=== PATIENT | female | born 1935 | race Caucasian/White ===

== ENCOUNTER → 2016-07-26 | Outpatient (CLI) | payer BC ==
[~2016-07-26] MED LIST: ACET-1047 PO; ASPCH81X PO; AZIT500T26 PO; CALC500C70 PO; CIPR1TAB10 PO; FLM4 PO; FRS/40 PO; INSU70IN2 SC; LANS30CA12 PO; LEVO75TA5 PO; LOSA1TAB PO; MELO15TA10 PO; MESA800T2 PO; METR-163 PO; PRED20TA PO; PROP40TA5 PO; RMCI IV; TRAM37.52 PO
--- NOTE | 2016-07-26 14:27 | DIAGNOSTIC IMAGING REPORT ---
CT SINUSES WITH BRAIN LAB CT DOSE: 634.72 mGycm CLINICAL HISTORY: Chronic sinusitis TECHNIQUE: Helical images were acquired in the transverse plane. Coronal reformatted images were acquired. COMPARISON STUDY: Conventional radiographic evaluation the sinuses dated 12/24/2015 FINDINGS: The mastoid air cells are symmetrically aerated. The maxillary sinuses are nearly completely opacified bilaterally. There is opacification of multiple bilateral ethmoid air cells. The frontal sinuses are opacified. There is no hydrocephalus. No orbital masses are visualized. There is ostial obstruction the right ostiomeatal unit. The left ostiomeatal unit is completely occluded. There is possible erosion of the medial wall the left maxillary sinus. There is also probable left ethmoid sinus septal erosion. There is nonspecific bony lysis involving the left medial sphenoid and anterior clivus. IMPRESSION: 1. Extensive inflammatory changes within the maxillary ethmoid and frontal sinuses 2. Occlusion of the ostiomeatal units 3. Suspected bony erosion involving the medial wall of the left maxilla sinus and left ethmoid septa 4. Nonspecific bony lysis involving the left medial sphenoid and anterior clivus Electronically signed by: Nate Park M.D. 07/26/2016 2:25 PM
== END | disposition home or self-care (01) ==
LOC: C.CTS 13:08
PROVIDERS: ATTEND Otolaryngology
DX: J32.9 Chronic sinusitis, unspecified (principal); Z01.812 Encounter for preprocedural laboratory examination

== ENCOUNTER → 2016-07-27 | Day surgery (SDC) | payer BC ==
[2016-07-25 15:48] VITALS: Ht 152.4 cm; Wt 81.8 kg
--- NOTE | 2016-07-26 13:17 | History and Physical: Surg Cnt ---
History & Physical Date Jul 26, 2016. Chief Complaint chronic sinusitis History of Present Illness The patient is a 81 year old female with complaints of sinusitis, polyps Past Medical/Surgical History Medical Problems: (1) DEHYD. UTI, ANEMIA (2) Hemorrhoids Surgical Problems: (1) History of colon resection Additional History Hepatic Disease: No Endocrine Disorder: Yes Kidney Disease: No Hypertension: Yes Heart Disease: No Bleeding Tendencies: No Infectious Diseases: No Allergies Coded Allergies: No Known Allergies (Verified , 07/25/16) Home Medications Scheduled Aspirin (Aspirin Chewable), 81 MG PO QAM Calcium/Vitamin D (Os-Karan 500 Plus D), 1 TAB PO QAM Furosemide (Lasix), 40 MG PO QAM Insulin Isophan/Regular (Novolin 70/30), 70 UNITS SC QAM Insulin Isophan/Regular (Novolin 70/30), 47 SC QPM Levothyroxine Sodium (Levothyroxine Sodium), 1 TAB PO QAM Losartan Potassium (Cozaar), 1 TAB PO QAM Meloxicam (Mobic), 15 MG PO QAM Propranolol Hcl (Propranolol Hcl), 1 TAB PO BID Physical Examination Skin: warm/dry, no rash Eyes: normal inspection, EOMI, sclerae normal ENT: normal ENT inspection, pharynx normal Head: normocephalic, atraumatic Neck: supple, no adenopathy, trachea midline Respiratory/Chest: lungs clear, normal breath sounds, no respiratory distress Cardiovascular: regular rate, rhythm, no edema, no murmur Abdomen / GI: normal bowel sounds, non tender Back: normal inspection Extremities: normal inspection, normal range of motion Neurologic/Psych: no motor/sensory deficits, alert, normal reflexes, oriented x 3 Diagnosis chronic sinusitis Plan of Treatment endoscopic sinus surgery
[~2016-07-27] VITALS: Ht 152.4 cm; Wt 81.8 kg
[~2016-07-27] MED LIST changes: +ATROPINE SULFATE 0.1 MG/ML 5ML SYR IV PRN; +BACITRACIN OINT 15 GM TUBE ONE; +CEFAZOLIN 2000 MG/60 ML D5W IV SCH; +DEXAMETHASONE SOD INJ 4 MG/ML VIAL ONE; +EpINEphrine INJ 1MG/ML AMP 1 MG/ML AMP ONE; +FENTANYL CITRATE INJ 50 MCG/1 ML 2 ML VIAL IV PRN; +FENTANYL CITRATE INJ 50 MCG/1 ML 2 ML VIAL ONE; +LABETALOL HCL IV 5 MG/ML 20ML IV PRN; +LACTATED RINGER'S 1000ML 1,000 ML IV SCH; +LIDO 2%/EPINEPHRINE 1:100000 20 ML VIAL INFIL ONE; +LIDOCAINE 4% MPF SOAK 5 ML = 1 DOSE TOP ONE; +LIDOCAINE HCL 2% 2 ML VIAL (20MG/ML) ONE; +METOCLOPRAMIDE HCL INJ 5 MG/ML 2 ML VIAL ONE; +ONDANSETRON INJ 2 MG/ML 2 ML VIAL IV PRN; +ONDANSETRON INJ 2 MG/ML 2 ML VIAL ONE; +OXYCODONE/ACETAMINOPHEN 5-325 TAB PO PRN; +PROPOFOL IV EMULSION 10 MG/ML 20 ML VIAL IV ONE; +SODIUM CHLORIDE 0.9% 1000ML 1,000 ML IV SCH
--- NOTE | 2016-07-27 08:08 | History & Physical Bridge Note ---
H&P Re-Evaluation Bridge Note: I have examined the patient, reviewed the History & Physical and in the interval since the performance of the History & Physical I have noted the following changes of clinical significance: No changes noted
--- NOTE | 2016-07-27 09:11 | Discharge Instructions-SurgCtr ---
Discharge Instructions Visit Reason for Visit: Chronic Sinusitis Discharge Discharge Diagnosis / Problem: same Discharge Goals Goal(s): Therapeutic intervention Activity Recommendations Activity Limitations: resume your previous activity Anesthesia . Post Anesthesia Instructions: If you have had General Anesthesia or IV Sedation: * Do not drive today. * Resume driving when surgeon permits. * Do not make important decisions or sign legal documents today. * Call surgeon for: 1. Temperature elevations greater than 101 degrees F. 2. Uncontrollable pain. 3. Excessive bleeding. 4. Persistent nausea and vomiting. 5. Medication intolerance (nausea, vomiting or rash). * For nausea and vomiting use only clear liquids such as: tea, soda, bouillon until nausea subsides, then gradually increase diet as tolerated. * If you have any concerns or questions, call your surgeon's office. If physician is unavailable and it is an emergency, call 911 or go to the nearest emergency room. . Instructions / Follow-Up Instructions / Follow-Up ACTIVITY RECOMMENDATIONS: * Being up and around is good, but no strenuous activity, heavy lifting or physical exertion for one week. * Keep your head elevated 30 degrees when lying down or sleeping. * Do not blow your nose for 48 hours, sniff back instead. * Avoid hot showers. OVER THE COUNTER MEDICATIONS: * You may use Tylenol * Avoid aspirin or aspirin containing products, e.g. as they may increase bleeding. SPECIAL CARE INSTRUCTIONS: * Expect to have bloody drainage from your nose and/or down your throat for one to three days. Change drip pad as needed. * Begin irrigating your nose with saline solution today, at least six to ten times per day and sniff back to help remove old clots or crust. * You may experience nasal and facial congestion, pain and pressure, this is normal. * Please call with any significant and/or progressive pain, redness, swelling around the eyes, visual changes, fever of 101.5 degrees F, active bleeding or any problems or concerns. * If active bleeding occurs, spray the nose three times at one minute intervals with Afrin spray and call or cell phone: . If unable to reach the doctor, go to the nearest Emergency Department. Special Diet: * Avoid extremely hot fluids. FOLLOW UP VISIT: Follow-up Visit with Dr. Floyd If not already scheduled, please call to schedule. Diet Recommendations Home Diet: resume previous diet Pending Studies Studies pending at discharge: no Medical Emergencies . Who to Call and When: Medical Emergencies: If at any time you feel your situation is an emergency, please call 911 immediately. . Non-Emergent Contact Non-Emergency issues call your: Primary Care Provider . . "Provider Documentation" section prepared by Marilin Floyd. [facility] Monitoring Program Search Results: no issues identified
[2016-07-27 09:14] LABS: BUN/CREATININE RATIO 18.5 (10-20); CALCIUM 9.4 mg/dl (8.5-10.1); CREATININE 1.2 mg/dl (0.60-1.20); POTASSIUM 4.3 mmol/L (3.5-5.1)
--- NOTE | 2016-07-27 11:53 | OPERATIVE REPORT ---
DATE OF OPERATION: 07/27/2016 PREOPERATIVE DIAGNOSIS: Chronic sinusitis. POSTOPERATIVE DIAGNOSIS: Same. PROCEDURE: Left frontal sinusotomy, right and left sphenoidotomy, right and left total ethmoidectomy and right and left maxillary sinus antrostomies. SURGEON: Dr. Floyd. ANESTHESIA: General endotracheal. COMPLICATIONS: None. BLOOD LOSS: 75 mL. 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 She also had bony erosion of the left sphenoid. OPERATION AND FINDINGS: DESCRIPTION OF PROCEDURE: The patient was brought to the operating room, placed in the supine position. General anesthesia was induced using LMA, prepped and draped in usual sterile manner. The nose was decongested using topical cottonoids with a solution of 4 mL of 4% Xylocaine with 1 mL of epinephrine. Injection 2% Xylocaine 1:1,000 strength epinephrine was also used. The right sphenoid was cannulated with guidewire with [employer] computer guidance and dilated using the 6 mm balloon and then flushed clean with 60 mL of saline. The left sphenoid sinus was also irrigated clean and dilated. Both sinuses irrigated clean. At this point, both maxillary sinuses were cannulated with guidewire and dilated using the 6 mm balloon and irrigated clean. There was purulent material from both maxillary sinuses. The right maxillary sinus was cultured. The left nasofrontal duct was cannulated with guidewire and dilated using the 6 mm balloon. The guidewire was then left in place as a marker. The frontal sinusotomy was performed with the shaver coupled with the [employer] device opening up the nasofrontal duct by removing the anterior and then the posterior wall of the agger nasi cell. The total ethmoidectomy was also performed opening up the bullae ethmoidalis going through the ground lamella finding purulent material opening up the ground lamella into the posterior ethmoid air cells finding the posterior ethmoid air cells which was also filled with purulent material which was irrigated clean. At this point the skull base and lamina papyracea were identified with the [employer] device. These structures were followed anteriorly exonerating all the posterior and then all the anterior ethmoid air cells up to the previously dilated nasofrontal duct. The sphenoid ostia was opened by removing polypoid tissue at the inferior border of the superior turbinate. The nasofrontal duct was then recannulated with the balloon and dilated using the 6 mm balloon and then irrigated clean with saline. A mini Propel stent was placed in the left nasofrontal duct. Attention was turned to the right side. The right nasofrontal duct could not be cannulated because of significant amount of osteitis. At this point, the total ethmoidectomy was performed opening up the bullae ethmoidalis going through the ground lamella into the posterior ethmoid air cell, again finding purulent material opening up all the posterior ethmoid air cells, delineating the skull base and lamina papyracea with the [employer] device following these structures anteriorly to exonerating all the posterior and all the anterior ethmoid air cells up to the previously marked nasofrontal duct which was marked on the [employer] device. The nasofrontal duct was found using the seeker and found to be stenotic. The pointer was also used to specifically identify the nasofrontal duct. Again, this duct was stenotic due to osteitis. No further attempt was made to drill out the frontal sinus; however, the nasofrontal duct was left open by removing the anterior and posterior wall of the agger nasi cell and then leaving the mucosa there intact. The maxillary sinus was opened by removing the polypoid tissue at the posterior border which is the anterior wall of the bullae ethmoidalis. Again, the sphenoid was opened in a similar manner. At this point, the Propel stent was placed in the right ethmoid area. The patient tolerated the procedure well and was taken to recovery area in satisfactory condition. I attest to the content of the Intraoperative Record and any orders documented therein. Any exceptio ns are noted below.
[2016-07-27 12:09] VITALS: TEMP 37.2
[2016-07-27 12:52] VITALS: BP 155/76; PULSE 82; O2SAT 92
--- NOTE | 2016-07-27 12:57 | Anesthesia Progress Nt - [facility] ---
Anesthesia Post Op Note Date & Time Jul 27, 2016 at 12:56 Vital Signs Pain Intensity: 0 Vital Signs Past 12 Hours Date Time Temp Pulse Resp B/P Pulse Ox O2 Delivery O2 Flow Rate FiO2 07/27/16 12:52 82 155/76 92 Room Air 07/27/16 12:13 136/80 07/27/16 12:11 83 28 07/27/16 12:11 84 28 96 07/27/16 12:11 84 28 96 07/27/16 12:11 83 28 07/27/16 12:09 37.2 82 20 135/85 96 Room Air 07/27/16 12:08 135/85 07/27/16 12:08 135/85 07/27/16 12:06 82 26 89 07/27/16 12:06 82 26 89 07/27/16 12:06 81 27 92 07/27/16 12:06 81 27 92 07/27/16 12:04 128/65 07/27/16 12:04 128/65 07/27/16 11:59 130/76 07/27/16 11:59 130/76 07/27/16 11:56 78 12 07/27/16 11:56 78 12 98 07/27/16 11:56 78 12 98 07/27/16 11:56 78 12 07/27/16 11:53 137/70 07/27/16 11:53 137/70 07/27/16 11:51 82 22 98 07/27/16 11:51 82 24 97 07/27/16 11:51 82 22 98 07/27/16 11:51 82 24 97 07/27/16 11:49 135/70 07/27/16 11:49 135/70 07/27/16 11:44 139/98 07/27/16 11:44 139/98 07/27/16 11:41 81 19 07/27/16 11:41 81 19 96 07/27/16 11:41 81 19 07/27/16 11:41 81 19 96 07/27/16 11:38 152/84 07/27/16 11:38 152/84 07/27/16 11:36 86 17 98 07/27/16 11:36 80 20 97 07/27/16 11:36 86 17 98 07/27/16 11:36 80 20 97 07/27/16 11:33 141/72 07/27/16 11:33 141/72 07/27/16 11:28 140/74 07/27/16 11:28 140/74 07/27/16 11:26 11 07/27/16 11:26 79 11 07/27/16 11:26 79 11 07/27/16 11:26 11 07/27/16 11:23 151/100 07/27/16 11:23 151/100 07/27/16 11:21 79 13 93 07/27/16 11:21 79 13 93 07/27/16 11:21 37.2 83 16 158/96 94 Humidified Oxygen 6 Diffusion Mask 07/27/16 11:21 79 13 07/27/16 11:21 79 13 07/27/16 08:11 36.4 75 20 172/89 97 Room Air Notes Mental Status: alert / awake / arousable, participated in evaluation Pt Amnestic to Procedure: Yes Nausea / Vomiting: adequately controlled Pain: adequately controlled Airway Patency, RR, SpO2: stable & adequate BP & HR: stable & adequate Hydration State: stable & adequate Anesthetic Complications: no major complications apparent
== END | disposition home or self-care (01) ==
LOC: X.SURG 07:38
PROVIDERS: ATTEND Otolaryngology
DX: J32.9 Chronic sinusitis, unspecified (principal); D64.9 Anemia, unspecified; K64.9 Unspecified hemorrhoids; N39.0 Urinary tract infection, site not specified; Z90.49 Acquired absence of other specified parts of digestive tract

== ENCOUNTER → 2016-08-16 | Outpatient (CLI) | payer BC ==
[~2016-08-16] MED LIST changes: -ATROPINE SULFATE 0.1 MG/ML 5ML SYR IV PRN; -BACITRACIN OINT 15 GM TUBE ONE; -CEFAZOLIN 2000 MG/60 ML D5W IV SCH; -DEXAMETHASONE SOD INJ 4 MG/ML VIAL ONE; -EpINEphrine INJ 1MG/ML AMP 1 MG/ML AMP ONE; -FENTANYL CITRATE INJ 50 MCG/1 ML 2 ML VIAL IV PRN; -FENTANYL CITRATE INJ 50 MCG/1 ML 2 ML VIAL ONE; -LABETALOL HCL IV 5 MG/ML 20ML IV PRN; -LACTATED RINGER'S 1000ML 1,000 ML IV SCH; -LIDO 2%/EPINEPHRINE 1:100000 20 ML VIAL INFIL ONE; -LIDOCAINE 4% MPF SOAK 5 ML = 1 DOSE TOP ONE; -LIDOCAINE HCL 2% 2 ML VIAL (20MG/ML) ONE; -METOCLOPRAMIDE HCL INJ 5 MG/ML 2 ML VIAL ONE; -ONDANSETRON INJ 2 MG/ML 2 ML VIAL IV PRN; -ONDANSETRON INJ 2 MG/ML 2 ML VIAL ONE; -OXYCODONE/ACETAMINOPHEN 5-325 TAB PO PRN; -PROPOFOL IV EMULSION 10 MG/ML 20 ML VIAL IV ONE; -SODIUM CHLORIDE 0.9% 1000ML 1,000 ML IV SCH; -TRAM37.52 PO
[2016-08-16 10:07] LABS: ESTIMATED AVERAGE GLUCOSE 194 mg/dl; HA1C FLAG Normal (Normal)
[2016-08-16 11:02] LABS: THYROID STIMULATING HORMONE 1.41 uIu/ml (0.300-4.500)
== END | disposition home or self-care (01) ==
LOC: C.LAB 07:09
PROVIDERS: ATTEND Internal Medicine
DX: Z00.00 Encounter for general adult medical examination without abnormal findings (principal); E03.9 Hypothyroidism, unspecified; E11.65 Type 2 diabetes mellitus with hyperglycemia; I10 Essential (primary) hypertension

== ENCOUNTER → 2016-11-06 | Outpatient (CLI) | payer BC ==
--- NOTE | 2016-11-06 16:25 | MAMMOGRAPHY REPORT ---
BILATERAL DIGITAL SCREENING MAMMOGRAM WITH CAD: 11/06/2016 CLINICAL HISTORY: Routine screening. Patient has no complaints. TECHNIQUE: Bilateral CC and MLO views were obtained. Current study was also evaluated with a Comput er Aided Detection (CAD) system. COMPARISON: Comparison is made to exams dated: 11/01/2015 mammogram, 10/29/2014 mammogram, 10/27/2013 ma mmogram, 09/16/2012 mammogram, 09/14/2011 mammogram, and 09/12/2010 mammogram - [facility] enter. BREAST COMPOSITION: There are scattered areas of fibroglandular density in both breasts. FINDINGS: A linear scar marker overlies the 12:00 middle one third of the left breast. There are be nign appearing calcifications and mild vascular calcification in the breasts. Stable asymmetry in t he anterior left breast, just lateral to the posterior nipple line on the CC view. No new suspiciou s mass, architectural distortion or cluster of microcalcifications is seen. IMPRESSION: ACR BI-RADS CATEGORY 1: NEGATIVE There is no mammographic evidence of malignancy. A 1 year screening mammogram is recommended. The p atient will receive written notification of the results. Approximately 10% of breast cancers are not detected with mammography. A negative mammographic repor t should not delay biopsy if a clinically suggestive mass is present. Kinza Gimenez M.D. ay/:11/06/2016 15:47:44 [employer] Supervisor: Candelaria DUNLAP)(Claudia), [facility] letter sent: Normal 1/2 BI-RADS Code: ACR BI-RADS Category 1: Negative
== END | disposition home or self-care (01) ==
LOC: C.MAMM 08:57
PROVIDERS: ATTEND Internal Medicine
DX: Z12.31 Encounter for screening mammogram for malignant neoplasm of breast (principal)

== ENCOUNTER → 2016-12-11 | Outpatient (CLI) | payer BC ==
[2016-12-11 09:51] LABS: BLOOD UREA NITROGEN 28 mg/dl (7-18); BUN/CREATININE RATIO 21.7 (10-20); CALCIUM 9.4 mg/dl (8.5-10.1); CARBON DIOXIDE 29 mmol/L (21-32); CHLORIDE 110 mmol/L (98-107); GLUCOSE 97 mg/dl (70-99); POTASSIUM 4.9 mmol/L (3.5-5.1); SODIUM 144 mmol/L (136-145)
[2016-12-11 09:54] LABS: CHOLESTEROL 104 mg/dl (0-200); HDL CHOLESTEROL 35 mg/dl; TRIGLYCERIDES 86 mg/dl (0-150); VERY LOW DENSITY LIPOPROT CALC 17 mg/dl
[2016-12-11 10:08] LABS: ESTIMATED AVERAGE GLUCOSE 166 mg/dl; HA1C FLAG Normal (Normal)
== END | disposition home or self-care (01) ==
LOC: C.LAB 07:00
PROVIDERS: ATTEND Internal Medicine
DX: E11.65 Type 2 diabetes mellitus with hyperglycemia (principal); I10 Essential (primary) hypertension; E78.5 Hyperlipidemia, unspecified

== ENCOUNTER → 2016-12-25 | Outpatient (CLI) | payer BC ==
[2016-12-25 13:14] LABS: BASO % 0.6 %; BASO ABS # 0.04 K/uL (0-0.2); COMPLETE YES; EOS % 4.6 %; HEMATOCRIT 33.3 % (37-47); IG% 0.2 %; LYMPH % 25.5 %; LYMPH ABS # 1.62 K/uL (1.2-3.4); MEAN CORPUSCULAR HEMOGLOBIN 25.8 pg (25-34); MEAN PLATELET VOLUME 8.9 fL (7.4-10.4); NEUT % 60.1 %; PLATELET COUNT 403 K/uL (130-400); RED BLOOD COUNT 3.87 M/uL (4.2-5.4); WHITE BLOOD COUNT 6.35 K/uL (4.8-10.8)
[2016-12-25 13:29] LABS: CALCIUM 10.6 mg/dl (8.5-10.1)
[2016-12-25 13:34] LABS: ALT/SGPT 17 U/L (12-78); BLOOD UREA NITROGEN 25 mg/dl (7-18); BUN/CREATININE RATIO 16.9 (10-20); CARBON DIOXIDE 28 mmol/L (21-32); CHLORIDE 105 mmol/L (98-107); GLUCOSE 115 mg/dl (70-99); POTASSIUM 4.4 mmol/L (3.5-5.1); SODIUM 139 mmol/L (136-145)
[2016-12-25 13:37] LABS: ALB/GLOB RATIO 0.6 (0.9-2); ALKALINE PHOSPHATASE 95 U/L (45-117); AST/SGOT 20 U/L (15-37)
== END | disposition home or self-care (01) ==
LOC: C.LABSPEC 12:23
PROVIDERS: ATTEND Internal Medicine
DX: K50.90 Crohn's disease, unspecified, without complications (principal)

== ENCOUNTER 2017-01-03 05:52 | Emergency (ER) | payer BC ==
[~2017-01-03] VITALS: Ht 152.4 cm; Wt 79.3 kg
[~2017-01-03 05:52] MED LIST changes: -ACET-1047 PO; -AZIT500T26 PO; -CIPR1TAB10 PO; -FLM4 PO; -LANS30CA12 PO; -MESA800T2 PO; -METR-163 PO; -PRED20TA PO; -RMCI IV
[2017-01-03 05:54] VITALS: TEMP 36.7; Ht 152.4 cm; Wt 79.3 kg
[2017-01-03 06:21] VITALS: O2SAT 94
[2017-01-03] MEDS ORDERED: SODIUM CHLORIDE 0.9% 1000ML 1,000 ML IV STA (06:36)
[2017-01-03 06:47] LABS: BASO % 0.1 %; BASO ABS # 0.01 K/uL (0-0.2); COMPLETE YES; EOS % 1.4 %; IG% 0.4 %; LYMPH ABS # 2.82 K/uL (1.2-3.4); MEAN CELL VOLUME 84.7 fL (80-100); MEAN CORPUSCULAR HEMOGLOBIN 25.9 pg (25-34); MEAN CORPUSCULAR HGB CONC 30.6 g/dl (32-36); MEAN PLATELET VOLUME 8.9 fL (7.4-10.4); MONO % 10.1 %; PLATELET COUNT 459 K/uL (130-400); RED BLOOD COUNT 4.25 M/uL (4.2-5.4); WHITE BLOOD COUNT 10.06 K/uL (4.8-10.8)
[2017-01-03 06:56] LABS: ALT/SGPT 15 U/L (12-78); AST/SGOT 13 U/L (15-37); BLOOD UREA NITROGEN 34 mg/dl (7-18); BUN/CREATININE RATIO 28.5 (10-20); CALCIUM 9.3 mg/dl (8.5-10.1); CARBON DIOXIDE 27 mmol/L (21-32); CHLORIDE 105 mmol/L (98-107); GLUCOSE 83 mg/dl (70-99); MAGNESIUM 2.1 mg/dl (1.8-2.4); POTASSIUM 3.9 mmol/L (3.5-5.1); SODIUM 139 mmol/L (136-145)
[2017-01-03 07:05] LABS: ALKALINE PHOSPHATASE 99 U/L (45-117); CKMB/CK RATIO 2.1 (0-3.0)
[2017-01-03 07:19] LABS: PROTHROMBIN TIME (PATIENT) 11.1 SECONDS (9.0-12.0)
--- NOTE | 2017-01-03 07:22 | DIAGNOSTIC IMAGING REPORT ---
CHEST ONE VIEW PORTABLE CLINICAL HISTORY: Altered mental status. Weakness. COMPARISON STUDY: Chest radiograph August 20, 2015. 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 There is a calcified left upper lobe nodule. There is no pneumothorax or pleural effusion. No evidence of pulmonary edema. Patient is mildly rotated. There is mild cardiomegaly. Opacity at the right cardiophrenic angle is unchanged and may reflect epicardial fat pad. IMPRESSION: No acute cardiopulmonary findings. Electronically signed by: Manoj Gilliland M.D. 01/03/2017 7:20 AM Dictated Date/Time: 01/03/2017 7:19 AM
[2017-01-03] MEDS ORDERED: MESA800T2 PO (08:02)
[2017-01-03] MEDS ORDERED: PRED20TA PO (08:02)
--- NOTE | 2017-01-03 08:11 | DIAGNOSTIC IMAGING REPORT ---
MRI OF THE BRAIN WITHOUT CONTRAST CLINICAL HISTORY: Facial numbness. Unsteady gait. COMPARISON STUDY: Sinus CT July 26, 2016. TECHNIQUE: Utilizing a 1.5 Mery magnet and dedicated coil, multiplanar, multiecho imaging of the brain was performed without IV contrast. FINDINGS: There are no areas of restricted diffusion. No acute intracranial hemorrhage, midline shift or mass effect is present. Basilar cisterns are patent. There are no extra-axial collections. Ventricular system is unremarkable for age. Scattered white matter T2 hyperintense foci suggest mild small vessel disease. Both maxillary sinuses are nearly completely opacified with air-fluid levels. This was shown on CT of July 26, 2016. There are suspected postsurgical findings within the sinuses. Ethmoid sinus opacification is slightly improved as has frontal sinus opacification. The left sphenoid sinus is opacified. Fluid within the maxillary sinuses shows restricted diffusion. IMPRESSION: 1. No acute intracranial findings. 2. Pansinusitis which may reflect acute on chronic sinusitis. Severe sinusitis was shown on exam of July 26, 2016. Slight improvement since prior exam. Electronically signed by: Manoj Gilliland M.D. 01/03/2017 8:09 AM Dictated Date/Time: 01/03/2017 7:56 AM
--- NOTE | 2017-01-03 08:24 | DIAGNOSTIC IMAGING REPORT ---
CT OF THE HEAD WITHOUT CONTRAST CLINICAL HISTORY: Altered mental status. Dizziness. Unsteady gait. COMPARISON STUDY: Sinus CT July 26, 2016 and MRI of the brain performed earlier today. CT DOSE: 638.56 mGycm TECHNIQUE: Helical axial images of the head were obtained without IV contrast. Automated exposure control was utilized for the study. FINDINGS: No acute intracranial hemorrhage, midline shift or mass effect is present. Brain volume is normal for age. Ventricular system is unremarkable. Basilar cisterns are patent. There are no extra-axial collections. Mild white matter hypodensity suggests small vessel disease. There are no findings to suggest acute dural sinus thrombosis or acute territorial infarct. Mastoid air cells are clear. Visualized portions of the bilateral maxillary sinuses are largely opacified with air-fluid levels. There are or air-fluid levels within the frontal sinuses as well as partial opacified ethmoid and sphenoid sinuses. There are findings suggestive of partial ethmoidectomies. IMPRESSION: 1. No acute intracranial findings. 2. Pansinusitis. This may reflect acute on chronic sinusitis. Interval improvement since exam of July 26, 2016. Electronically signed by: Manoj Gilliland M.D. 01/03/2017 8:23 AM Dictated Date/Time: 01/03/2017 8:20 AM
[2017-01-03] MEDS ORDERED: AZIT500T26 PO (09:44)
--- NOTE | 2017-01-03 09:44 | EMERGENCY ROOM VISIT NOTE ---
History Report prepared by Eliana: Maddison Chandra Under the Supervision of: Dr. Abner Sanchez D.O. First contact with patient: 06:35 Chief Complaint: NEURO SYMPTOMS Stated Complaint: FACIAL NUMBNESS,HIGH BLOOD PRESSURE Nursing Triage Summary: c/o lower lip numbness most of the night denies cp c/o a "keith". History of Present Illness The patient is an 81 year old female who presents to the Emergency Room for further evaluation of constant neuro symptoms that started 3 hours ago, around 0400. The patient states that she woke up this morning with numbness along the right side of her jaw and into the middle of her chin. She is also experiencing numbness in her lower lip, but denies any numbness in her upper lip or in her right cheek. The patient's came downstairs around 0500 and the patient was still complaining of the numbness along with right ear pain. He states that her speech also seemed slurred at that time. They took the patient's blood pressure and noticed that it was elevated. The patient's states that with all of the patient's symptoms he was concerned about a stroke so he brought her into the ED. The patient's states that the patient's speech does not appear to be slurred currently. Per nursing staff notes, the patient is also experiencing a right-sided headache. She denies any chest pain. The patient is on one baby aspirin daily, but denies being on any other blood thinners. The patient adds that she was started on prednisone 9 days ago for a Crohn's disease flare up. She states that she is diabetic and her sugars have been fluctuating since she started the prednisone. The patient takes insulin for her blood sugars and she states that she checks her blood sugars once a day. Source of History: patient, spouse/significant other () Onset: 3 hours ago, around 0400 Position: head Quality: other (neuro symptoms) Timing: constant Associated Symptoms: + headache (right-sided), + numbness (lower lip, along right side of jaw, no numbness in upper lip or right cheek), No chest pain Note: slurred speech but not currently, hypertension, right ear pain Review of Systems See HPI for pertinent positives & negatives. A total of 10 systems reviewed and were otherwise negative. Past Medical & Surgical Medical Problems: (1) DEHYD. UTI, ANEMIA (2) Hemorrhoids (3) History of abdominal hernia Surgical Problems: (1) History of cholecystectomy (2) History of colon resection (3) History of hysterectomy Family History Heart disease Hypertension Social History Smoking Status: Never Smoker Alcohol Use: none Drug Use: none Marital Status: Housing Status: lives with family Occupation Status: retired Current/Historical Medications Scheduled Aspirin (Aspirin Chewable), 81 MG PO QPM Azithromycin (Zithromax), 500 MG PO DAILY Calcium/Vitamin D (Os-Karan 500 Plus D), 1 TAB PO QAM Furosemide (Lasix), 40 MG PO QAM Insulin Isophan/Regular (Novolin 70/30), 70 UNITS SC QAM Insulin Isophan/Regular (Novolin 70/30), 48 SC QPM Levothyroxine Sodium (Levothyroxine Sodium), 1 TAB PO QAM Losartan Potassium (Cozaar), 50 MG PO QAM Meloxicam (Mobic), 15 MG PO QAM Mesalamine (Mesalamine Dr), 800 MG PO BID Prednisone (Prednisone), 20 MG PO DAILY Propranolol Hcl (Propranolol Hcl), 1 TAB PO BID Allergies Coded Allergies: No Known Allergies (Verified , 01/03/17) Physical Exam Vital Signs Date Time Temp Pulse Resp B/P (MAP) Pulse Ox O2 Delivery O2 Flow Rate FiO2 01/03/17 08:24 79 16 157/89 96 Room Air 01/03/17 06:21 94 Room Air 01/03/17 06:20 70 18 181/84 94 Room Air 01/03/17 06:16 68 01/03/17 05:54 36.7 75 20 204/100 95 Room Air Physical Exam VITAL SIGNS: were reviewed as above. GENERAL:Non-toxic in appearance. SKIN: Warm dry and pink. HEAD: Normocephalic and atraumatic. OROPHARYNX: Is clear and moist NECK: Supple without lymphadenopathy or meningismus. LUNGS: clear. HEART: Regular rate and rhythm. ABDOMEN: Soft and nontender. EXTREMITIES: Warm and well perfused. NEUROLOGICALLY: Awake alert and oriented without focal deficit. Cranial nerves 2 -12 are intact. There is no pronator drift. Cerebellar testing is within normal limits. There is no nystagmus. There is no facial droop. Speech is clear. Vision is grossly normal. MUSCULOSKELETAL: Good muscle tone. No evidence of trauma. 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 There is a calcified left upper lobe nodule. There is no pneumothorax or pleural effusion. No evidence of pulmonary edema. Patient is mildly rotated. There is mild cardiomegaly. Opacity at the right cardiophrenic angle is unchanged and may reflect epicardial fat pad. IMPRESSION: No acute cardiopulmonary findings. Electronically signed by: Manoj Gilliland M.D. 01/03/2017 7:20 AM Dictated Date/Time: 01/03/2017 7:[address] OF THE HEAD WITHOUT CONTRAST FINDINGS: No acute intracranial hemorrhage, midline shift or mass effect is present. Brain volume is normal for age. Ventricular system is unremarkable. Basilar cisterns are patent. There are no extra-axial collections. Mild white matter hypodensity suggests small vessel disease. There are no findings to suggest acute dural sinus thrombosis or acute territorial infarct. Mastoid air cells are clear. Visualized portions of the bilateral maxillary sinuses are largely opacified with air-fluid levels. There are or air-fluid levels within the frontal sinuses as well as partial opacified ethmoid and sphenoid sinuses. There are findings suggestive of partial ethmoidectomies. IMPRESSION: 1. No acute intracranial findings. 2. Pansinusitis. This may reflect acute on chronic sinusitis. Interval improvement since exam of July 26, 2016. Electronically signed by: Manoj Gilliland M.D. 01/03/2017 8:23 AM Dictated Date/Time: 01/03/2017 8:20 AM MRI OF THE BRAIN WITHOUT CONTRAST FINDINGS: There are no areas of restricted diffusion. No acute intracranial hemorrhage, midline shift or mass effect is present. Basilar cisterns are patent. There are no extra-axial collections. Ventricular system is unremarkable for age. Scattered white matter T2 hyperintense foci suggest mild small vessel disease. Both maxillary sinuses are nearly completely opacified with air-fluid levels. This was shown on CT of July 26, 2016. There are suspected postsurgical findings within the sinuses. Ethmoid sinus opacification is slightly improved as has frontal sinus opacification. The left sphenoid sinus is opacified. Fluid within the maxillary sinuses shows restricted diffusion. IMPRESSION: 1. No acute intracranial findings. 2. Pansinusitis which may reflect acute on chronic sinusitis. Severe sinusitis was shown on exam of July 26, 2016. Slight improvement since prior exam. Electronically signed by: Manoj Gilliland M.D. 01/03/2017 8:09 AM Dictated Date/Time: 01/03/2017 7:56 AM Laboratory Results 01/03/17 06:18 Red Blood Count 4.25, Mean Corpuscular Volume 84.7, Mean Corpuscular Hemoglobin 25.9, Mean Corpuscular Hemoglobin Concent 30.6, Mean Platelet Volume 8.9, Neutrophils (%) (Auto) 60.0, Lymphocytes (%) (Auto) 28.0, Monocytes (%) (Auto) 10.1, Eosinophils (%) (Auto) 1.4, Basophils (%) (Auto) 0.1, Neutrophils # (Auto ) 6.03, Lymphocytes # (Auto) 2.82, Monocytes # (Auto) 1.02, Eosinophils # (Auto ) 0.14, Basophils # (Auto) 0.01 01/03/17 06:18 Test 01/03/17 06:18 01/03/17 06:36 01/03/17 07:05 White Blood Count 10.06 K/uL (4.8-10.8) Red Blood Count 4.25 M/uL (4.2-5.4) Hemoglobin 11.0 g/dL (12.0-16.0) Hematocrit 36.0 % (37-47) Mean Corpuscular Volume 84.7 fL (80-100) Mean Corpuscular Hemoglobin 25.9 pg (25-34) Mean Corpuscular Hemoglobin Concent 30.6 g/dl (32-36) Platelet Count 459 K/uL (130-400) Mean Platelet Volume 8.9 fL (7.4-10.4) Neutrophils (%) (Auto) 60.0 % Lymphocytes (%) (Auto) 28.0 % Monocytes (%) (Auto) 10.1 % Eosinophils (%) (Auto) 1.4 % Basophils (%) (Auto) 0.1 % Neutrophils # (Auto) 6.03 K/uL (1.4-6.5) Lymphocytes # (Auto) 2.82 K/uL (1.2-3.4) Monocytes # (Auto) 1.02 K/uL (0.11-0.59) Eosinophils # (Auto) 0.14 K/uL (0-0.5) Basophils # (Auto) 0.01 K/uL (0-0.2) RDW Standard Deviation 50.4 fL (36.4-46.3) RDW Coefficient of Variation 16.1 % (11.5-14.5) Immature Granulocyte % (Auto) 0.4 % Immature Granulocyte # (Auto) 0.04 K/uL (0.00-0.02) Anion Gap 7.0 mmol/L (3-11) Est Creatinine Clear Calc Drug Dose 34.8 ml/min Estimated GFR () 49.4 Estimated GFR (Non- 42.7 BUN/Creatinine Ratio 28.5 (10-20) Calcium Level 9.3 mg/dl (8.5-10.1) Magnesium Level 2.1 mg/dl (1.8-2.4) Total Bilirubin 0.5 mg/dl (0.2-1) Direct Bilirubin 0.1 mg/dl (0-0.2) Aspartate Amino Transf (AST/SGOT) 13 U/L (15-37) Alanine Aminotransferase (ALT/SGPT) 15 U/L (12-78) Alkaline Phosphatase 99 U/L (45-117) Total Creatine Kinase 87 U/L (26-192) Creatine Kinase MB 1.8 ng/ml (0.5-3.6) Creatine Kinase MB Ratio 2.1 (0-3.0) Troponin I < 0.015 ng/ml (0-0.045) Total Protein 7.7 gm/dl (6.4-8.2) Albumin 3.0 gm/dl (3.4-5.0) Lipase 178 U/L (73-393) Thyroid Stimulating Hormone (TSH) 1.930 uIu/ml (0.300-4.500) Prothrombin Time 11.1 SECONDS (9.0-12.0) Prothromb Time International Ratio 1.0 (0.9-1.1) Activated Partial Thromboplast Time 26.5 SECONDS (21.0-31.0) Partial Thromboplastin Ratio 1.0 Laboratory results as stated above per my review. Medications Administered Medications (Trade) Dose Ordered Sig/Maura Route Start Time Stop Time Status Last Admin Dose Admin Sodium Chloride 1,000 ml @ 200 mls/hr Q5H STAT IV 01/03/17 06:36 01/03/17 11:35 01/03/17 06:54 200 MLS/HR ECG Indication: altered mental status Rate (beats per minute): 70 Rhythm: sinus with SA Findings: no acute ischemic change, no ectopy ED Course 0636: Ordered Sodium Chloride 1000 ml @ 200 mls/hr IV 0641: Previous medical records were reviewed. The patient was evaluated in room A10. A complete history and physical examination was performed. 0937: On reevaluation, the patient is doing well. I discussed the results and findings with the patient and her . They verbalized agreement of the treatment plan. The patient was discharged home. Medical Decision Differential includes acute coronary syndrome, myocardial infarction, CVA, TIA, anemia, infection, pneumonia, UTI, pyelonephritis, poor nutrition, dehydration, electrolyte disturbance,hypoglycemia. Medication Reconciliation: I attest that I have personally reviewed the patient' s current medication list. Blood pressure Screening: Patient was found to have an elevated blood pressure and was referred to their primary doctor for recheck and further treatment. This is an 81-year-old female who presents to the ED with a chief complaint of some lower lip and chin numbness started around 4:56 AM. The also states that the patient was slurring her speech at 4 AM. She also complained of right ear pain that started when she got here the emergency room. She states that her blood pressure was elevated this morning. She was feeling a little dizzy and unsteady in her gait. Her initial blood pressure here was 204/ 100. It remained somewhat elevated at 180s systolic range during her stay. Her physical exam was unremarkable. She had no focal neurologic deficits. An EKG shows a sinus rhythm. CT scan of the brain and MRI of the brain revealed pansinusitis acute on chronic. Chest x-ray was negative for acute disease. The patient does report having been on antibiotics in August for 6 weeks for sinus infection. She is seeing Dr. Floyd. CBC and complete metabolic panel were unremarkable. The BUN is 34. The patient received IV fluids here. Troponin was negative. TSH was normal. The patient was told the results of the test per she will be discharged on Zithromax. She is to follow-up with her PCP/Dr. Floyd for further evaluation of her symptoms and recheck of her blood pressure. Impression Primary Impression: Sinusitis Additional Impressions: Facial numbness Dehydration Scribe Attestation The scribe's documentation has been prepared under my direction and personally reviewed by me in its entirety. I confirm that the note above accurately reflects all work, treatment, procedures, and medical decision making performed by me. Departure Information Dispostion Home / Self-Care Prescriptions Azithromycin (Zithromax) 500 Mg Tab 500 MG PO DAILY, #7 TAB Prov: Abner Sanchez D.O. 01/03/17 Referrals Alfredo Lancaster M.D. (PCP) Forms HOME CARE DOCUMENTATION FORM, IMPORTANT VISIT INFORMATION, WORK / SCHOOL INSTRUCTIONS Patient Instructions [facility] Additional Instructions Follow-up with your doctor and Dr. Floyd for your symptoms. Have your blood pressure rechecked. Call today for follow-up appointments. Zithromax as prescribed for sinus infection. Follow-up with your doctor for further care and evaluation in 1-7 days. Return to the emergency department for worsening or new symptoms or any concerns. You have been examined and treated today on an emergency basis only. This is not a substitute for, or an effort to provide, complete comprehensive medical care. It is impossible to recognize and treat all injuries or illnesses in a single emergency department visit. It is therefore important that you follow up closely with your doctor. Call as soon as possible for an appointment. Problem Qualifiers
[2017-01-03 09:53] VITALS: BP 196/79; PULSE 72; O2SAT 96
[2017-01-03 10:06] LABS: URINE APPEARANCE CLOUDY (CLEAR); URINE BILIRUBIN NEG (NEG); URINE COLOR YELLOW; URINE EPITHELIAL CELL AUTO >30 /lpf (0-5); URINE NITRITE POS (NEG); URINE SPECIFIC GRAVITY 1.017 (1.000-1.030); UROBILINOGEN NEG (NEG); ZZUR CULT IF INDIC CLEAN CATCH YES
[2017-01-03 10:12] LABS: MANUAL MICROSCOPIC REQUIRED? NO; REVIEW REQ? YES
--- NOTE | 2017-01-05 12:07 | Pharmacy Progress Note ---
ED Pharmacist Culture FollowUp Date of Service: Jan 05, 2017. Patient was seen in ER on 01/03/17 for neuro symptoms (numbness of lower lip, R jaw and chin as well as TIERNEY). The patient was dx with sinusitis and discharged w/ Rx for Azithromycin and instructions to f/u with ENT. A urine cx was collected this day and is growing >100,000 CFU/mL of citrobacter koseri, which azithromycin will not cover, however the patient had not c/o urinary symptoms; therefore this is asymptomatic bacteruria. There is no indication to treat this patient based upon urine cx. Only settings in which asymptomatic bacteruria tx is indicated are: , planned urologic intervention, or in the setting of renal x-plant. No action required.
[2017-02-06] MEDS ORDERED: CIPR1TAB10 PO (08:00)
[2017-02-06] MEDS ORDERED: LEVO75TA5 PO (08:00)
[2017-02-06] MEDS ORDERED: LOSA1TAB PO (08:00)
[2017-02-06] MEDS ORDERED: ACET-1047 PO (08:00)
[2017-02-06] MEDS ORDERED: INSU70IN2 SC ×2 (08:00)
[2017-02-06] MEDS ORDERED: METR-163 PO (08:00)
[2017-02-06] MEDS ORDERED: MELO15TA10 PO (08:00)
[2017-02-06] MEDS ORDERED: FRS/40 PO (08:00)
[2017-02-06] MEDS ORDERED: FLM4 PO (08:00)
[2017-02-06] MEDS ORDERED: LANS30CA12 PO (08:00)
[2017-02-06] MEDS ORDERED: PRED20TA PO (08:00)
[2017-02-06] MEDS ORDERED: PROP40TA5 PO (08:00)
[2017-02-06] MEDS ORDERED: CALC500C70 PO (08:00)
[2017-02-06] MEDS ORDERED: RMCI IV (08:05)
== END 2017-01-03 09:55 | disposition home or self-care (01) ==
LOC: C.EDB 05:53 → C.EDA 09:55
DX: J32.9 Chronic sinusitis, unspecified (principal); R20.0 Anesthesia of skin; E86.0 Dehydration; E11.9 Type 2 diabetes mellitus without complications; K50.90 Crohn's disease, unspecified, without complications; Z87.440 Personal history of urinary (tract) infections; Z90.49 Acquired absence of other specified parts of digestive tract; Z90.710 Acquired absence of both cervix and uterus; Z90.89 Acquired absence of other organs; Z82.49 Family history of ischemic heart disease and other diseases of the circulatory system; Z79.4 Long term (current) use of insulin; Z79.82 Long term (current) use of aspirin

== ENCOUNTER 2017-01-09 12:49 | Emergency (ER) | payer BC ==
[~2017-01-09 12:49] MED LIST changes: +AZIT500T26 PO; +MESA800T2 PO; +PRED20TA PO
[2017-01-09 12:50] VITALS: TEMP 36.4
[2017-01-09] MEDS ORDERED: LORAZEPAM 2 MG/ML 1 ML VIAL IV STA (13:08)
[2017-01-09] MEDS ORDERED: SODIUM CHLORIDE 0.9% 1000ML 1,000 ML IV STA (13:08)
[2017-01-09 13:49] LABS: BASO % 0.2 %; BASO ABS # 0.01 K/uL (0-0.2); COMPLETE YES; EOS % 0.3 %; HEMATOCRIT 37.1 % (37-47); IG% 0.3 %; LYMPH % 15.8 %; LYMPH ABS # 0.93 K/uL (1.2-3.4); MEAN CELL VOLUME 83.6 fL (80-100); MEAN CORPUSCULAR HEMOGLOBIN 24.8 pg (25-34); MEAN CORPUSCULAR HGB CONC 29.6 g/dl (32-36); MEAN PLATELET VOLUME 8.3 fL (7.4-10.4); MONO % 3.1 %; NEUT % 80.3 %; PLATELET COUNT 439 K/uL (130-400); RED BLOOD COUNT 4.44 M/uL (4.2-5.4); WHITE BLOOD COUNT 5.89 K/uL (4.8-10.8)
--- NOTE | 2017-01-09 13:58 | DIAGNOSTIC IMAGING REPORT ---
SINGLE VIEW CHEST CLINICAL HISTORY: Dyspnea. FINDINGS: An AP, portable, upright chest radiograph is compared to study dated 01/03/2017. The examination is degraded by portable technique, apical lordotic positioning, and patient rotation. The heart is enlarged and there is atherosclerotic calcification of the thoracic aorta. The pulmonary vasculature is noncongested. No airspace consolidation or large pleural effusion is seen. There is minimal left basilar atelectasis. Calcified granulomas are again seen at the left apex. No pneumothorax is identified. The skeletal structures are osteopenic. Advanced degenerative change is noted in the shoulders. IMPRESSION: Mild cardiac enlargement with no acute cardiopulmonary abnormality. Electronically signed by: Aiden Lo M.D. 01/09/2017 1:56 PM Dictated Date/Time: 01/09/2017 1:55 PM
[2017-01-09 14:06] LABS: BLOOD UREA NITROGEN 34 mg/dl (7-18); BUN/CREATININE RATIO 21.3 (10-20); CARBON DIOXIDE 23 mmol/L (21-32); CHLORIDE 103 mmol/L (98-107); GLUCOSE 119 mg/dl (70-99); MAGNESIUM 2.3 mg/dl (1.8-2.4); POTASSIUM 4.1 mmol/L (3.5-5.1); SODIUM 137 mmol/L (136-145)
[2017-01-09 14:08] LABS: CALCIUM 9.9 mg/dl (8.5-10.1)
[2017-01-09 14:11] LABS: CKMB/CK RATIO 0.7 (0-3.0); PHOSPHORUS 2.7 mg/dl (2.5-4.9)
--- NOTE | 2017-01-09 14:52 | EMERGENCY ROOM VISIT NOTE ---
History Report prepared by Eliana: Adriana Gray Under the Supervision of: Dr. Rogelio Martinez M.D. First contact with patient: 12:56 Chief Complaint: DIZZY Stated Complaint: LIGHT HEADED, DIZZY History of Present Illness The patient is an 81 year old female who presents to the Emergency Room with complaints of an episode of dizziness starting prior to arrival. She reports that he is weak and very nervous. She state that she did not eat today because she is having a rectal exam under anesthesia tomorrow in [place]. The patient complains of diarrhea, hematochezia, and numbness in her face. The patient notes that she has a history of Crohn disease and open fissures. She notes that she has no history of anxiety. She denies swelling her legs. Source of History: patient Onset: prior to arrival Position: other (global) Quality: other (global) Timing: other (episode) Associated Symptoms: + hematochezia, + diarrhea, + numbness (in face) Note: The patient denies swelling in legs. Review of Systems See HPI for pertinent positives & negatives. A total of 10 systems reviewed and were otherwise negative. Past Medical & Surgical Medical Problems: (1) DEHYD. UTI, ANEMIA (2) Hemorrhoids (3) History of abdominal hernia Surgical Problems: (1) History of cholecystectomy (2) History of colon resection (3) History of hysterectomy Family History Heart disease Hypertension Social History Smoking Status: Never Smoker Alcohol Use: none Drug Use: none Marital Status: Housing Status: lives with family Occupation Status: retired Current/Historical Medications Scheduled Aspirin (Aspirin Chewable), 81 MG PO QPM Azithromycin (Zithromax), 500 MG PO DAILY Calcium/Vitamin D (Os-Karan 500 Plus D), 1 TAB PO QAM Furosemide (Lasix), 40 MG PO QAM Insulin Isophan/Regular (Novolin 70/30), 70 UNITS SC QAM Insulin Isophan/Regular (Novolin 70/30), 48 SC QPM Levothyroxine Sodium (Levothyroxine Sodium), 1 TAB PO QAM Losartan Potassium (Cozaar), 50 MG PO QAM Meloxicam (Mobic), 15 MG PO QAM Mesalamine (Mesalamine Dr), 800 MG PO BID Prednisone (Prednisone), 20 MG PO DAILY Propranolol Hcl (Propranolol Hcl), 1 TAB PO BID Allergies Coded Allergies: No Known Allergies (Verified , 01/03/17) Physical Exam Vital Signs Date Time Temp Pulse Resp B/P (MAP) Pulse Ox O2 Delivery O2 Flow Rate FiO2 01/09/17 15:17 61 18 136/73 95 01/09/17 12:50 36.4 68 20 151/70 95 Room Air Physical Exam GENERAL: Patient is elderly appearing and is severely anxious. HEENT: No acute trauma, normocephalic atraumatic, mucous membranes moist, no nasal congestion, no scleral icterus. NECK: No stridor, no adenopathy, no meningismus, trachea is midline. LUNGS: No dyspnea. Clear to auscultation and equal bilaterally. No wheeze, no rhonchi. HEART: Regular rate and rhythm. No murmurs, rubs, gallops appreciated. ABDOMEN: Soft, bowel sounds positive, no masses appreciated, no peritonitis, diffuse lower abdominal tenderness to palpation. BACK: No midline tenderness, no CVA tenderness EXTREMITIES: Normal motion all extremities, no cyanosis, no edema. NEUROLOGIC: Alert and oriented, no acute motor or sensory deficits, no focal weakness, cranial nerves grossly intact. SKIN: No rash, no jaundice, no diaphoresis. Medical Decision & Procedures ER Provider Diagnostic Interpretation: Radiology results and stated below per my review and radiologist interpretation: SINGLE VIEW CHEST CLINICAL HISTORY: Dyspnea. FINDINGS: An AP, portable, upright chest radiograph is compared to study dated 01/03/2017. The examination is degraded by portable technique, apical lordotic positioning, and patient rotation. The heart is enlarged and there is atherosclerotic calcification of the thoracic aorta. The pulmonary vasculature is noncongested. No airspace consolidation or large pleural effusion is seen. There is minimal left basilar atelectasis. Calcified granulomas are again seen at the left apex. No pneumothorax is identified. The skeletal structures are osteopenic. Advanced degenerative change is noted in the shoulders. IMPRESSION: Mild cardiac enlargement with no acute cardiopulmonary abnormality. Electronically signed by: Aiden Lo M.D. 01/09/2017 1:56 PM Dictated Date/Time: 01/09/2017 1:55 PM Laboratory Results 01/09/17 13:35 Red Blood Count 4.44, Mean Corpuscular Volume 83.6, Mean Corpuscular Hemoglobin 24.8, Mean Corpuscular Hemoglobin Concent 29.6, Mean Platelet Volume 8.3, Neutrophils (%) (Auto) 80.3, Lymphocytes (%) (Auto) 15.8, Monocytes (%) (Auto) 3.1, Eosinophils (%) (Auto) 0.3, Basophils (%) (Auto) 0.2, Neutrophils # (Auto) 4.73, Lymphocytes # (Auto) 0.93, Monocytes # (Auto) 0.18, Eosinophils # (Auto) 0.02, Basophils # (Auto) 0.01 01/09/17 13:35 Test 01/09/17 13:35 01/09/17 14:40 White Blood Count 5.89 K/uL (4.8-10.8) Red Blood Count 4.44 M/uL (4.2-5.4) Hemoglobin 11.0 g/dL (12.0-16.0) Hematocrit 37.1 % (37-47) Mean Corpuscular Volume 83.6 fL (80-100) Mean Corpuscular Hemoglobin 24.8 pg (25-34) Mean Corpuscular Hemoglobin Concent 29.6 g/dl (32-36) Platelet Count 439 K/uL (130-400) Mean Platelet Volume 8.3 fL (7.4-10.4) Neutrophils (%) (Auto) 80.3 % Lymphocytes (%) (Auto) 15.8 % Monocytes (%) (Auto) 3.1 % Eosinophils (%) (Auto) 0.3 % Basophils (%) (Auto) 0.2 % Neutrophils # (Auto) 4.73 K/uL (1.4-6.5) Lymphocytes # (Auto) 0.93 K/uL (1.2-3.4) Monocytes # (Auto) 0.18 K/uL (0.11-0.59) Eosinophils # (Auto) 0.02 K/uL (0-0.5) Basophils # (Auto) 0.01 K/uL (0-0.2) RDW Standard Deviation 49.3 fL (36.4-46.3) RDW Coefficient of Variation 16.3 % (11.5-14.5) Immature Granulocyte % (Auto) 0.3 % Immature Granulocyte # (Auto) 0.02 K/uL (0.00-0.02) Anion Gap 11.0 mmol/L (3-11) Estimated GFR () 34.9 Estimated GFR (Non- 30.1 BUN/Creatinine Ratio 21.3 (10-20) Calcium Level 9.9 mg/dl (8.5-10.1) Phosphorus Level 2.7 mg/dl (2.5-4.9) Magnesium Level 2.3 mg/dl (1.8-2.4) Total Creatine Kinase 81 U/L (26-192) Creatine Kinase MB 0.6 ng/ml (0.5-3.6) Creatine Kinase MB Ratio 0.7 (0-3.0) Troponin I < 0.015 ng/ml (0-0.045) C-Reactive Protein 15.10 mg/dl (0-0.29) Urine Color YELLOW Urine Appearance CLEAR (CLEAR) Urine pH 5.0 (4.5-7.5) Urine Specific [place] 1.014 (1.000-1.030) Urine Protein NEG (NEG) Urine Glucose (UA) NEG (NEG) Urine Ketones NEG (NEG) Urine Occult Blood NEG (NEG) Urine Nitrite POS (NEG) Urine Bilirubin NEG (NEG) Urine Urobilinogen NEG (NEG) Urine Leukocyte Esterase MODERATE (NEG) Urine WBC (Auto) 10-30 /hpf (0-5) Urine RBC (Auto) 0-4 /hpf (0-4) Urine Hyaline Casts (Auto) 1-5 /lpf (0-5) Urine Epithelial Cells (Auto) 0-5 /lpf (0-5) Urine Bacteria (Auto) 1+ (NEG) Laboratory results as reviewed by me. Medications Administered Medications (Trade) Dose Ordered Sig/Maura Route Start Time Stop Time Status Last Admin Dose Admin Lorazepam (Ativan Inj) 0.5 mg NOW STAT IV 01/09/17 13:08 01/09/17 13:10 DC 01/09/17 13:41 0.5 MG Sodium Chloride 1,000 ml @ 999 mls/hr Q1H1M STAT IV 01/09/17 13:08 01/09/17 14:08 DC 01/09/17 13:08 999 MLS/HR ECG Indication: weakness Rate (beats per minute): 57 Rhythm: sinus bradycardia, sinus with SA Findings: no acute ischemic change, no ectopy ED Course 1257: The patient was evaluated in room C11. A complete history and physical exam was performed. 1308; Ordered NSS 1000 ml @ 999 mls/hr IV, Ativan Inj 0.5 mg IV. 1415: I reevaluated the patient and she is feeling better. 1419: Discussed the patient's case with Dr.Aboul Garcia. He advised hydrating and holding on imaging because he feels that she needs to be seen by the colorectal surgeon tomorrow morning, which is already planned. 1450: Reevaluated the patient. She is no longer having any abdominal discomfort or tenderness to palpation. Discussed results and discharge instructions: She verbalized understanding and agreement. The patient is ready for discharge. Medical Decision Medication Reconciliation: I attest that I have personally reviewed the patient 's current medication list. Blood Pressure Screening: Patient was found to have a slightly elevated blood pressure due to circumstances. I do not believe that the patient requires hypertension monitoring. Differential: Sepsis, Infectious (UTI/Pneumonia/Meningitis/etc), Metabolic/ Electrolyte Abnormality, Cardiac, Hepatic, Endocrine, Toxicologic, Neurologic, amongst other pathologies entertained. 81 yr old female arrives quite anxious regarding her inflamed rectal area. Ongoing for a while now but has been worsening. Just had appointment with Colorectal Surg Sunday with planned anesthesia for full exam tomorrow morning. She and clearly quite anxious about this. Given small dose IV ativan with vast resolution of symptoms. initially some lower abdominal discomfort though on repeat exams without TTP and does not have surgical abdomen. She does not have elevated WBC nor fever. CRP consistent with her Crohn's exacerbation. She id comfortable and in no distress. I have discussed case with her PCP who knows her well. He feels that patient very much should be seen tomorrow morning. Without other symptoms I feel CT at this time would be excessive, especially given her surgical evaluation tomorrow morning. She is not septic and is breathing comfortably in no distress. She was just evaluated in ED with MRI/CT of brain and extensive other testing which was normal a few days earlier. She is somewhat dehydrated but with fluids looks fine. She and are comfortable with plan. She was encouraged to return immediately if worsening of symptoms or other concerns. Consults Time Called: 1415 Consulting Physician: Dr.Aboul Garcia. Returned Call: 1419 Discussed the patient's case with Dr.Aboul Garcia. He advised hydrating and holding on imaging because he feels that she needs to be seen by the colorectal surgeon tomorrow morning, which is already planned. Impression Primary Impression: Lightheaded Additional Impressions: Dehydration Anxiety Scribe Attestation The scribe's documentation has been prepared under my direction and personally reviewed by me in its entirety. I confirm that the note above accurately reflects all work, treatment, procedures, and medical decision making performed by me. Departure Information Dispostion Home / Self-Care Referrals Alfredo Lancaster M.D. (PCP) Forms HOME CARE DOCUMENTATION FORM, IMPORTANT VISIT INFORMATION Patient Instructions ED Dehydration, My [facility] Additional Instructions We are always here to help. It is very important you get to your appointment tomorrow. Return if fevers, vomiting, passing out or severe abdominal pain. Problem Qualifiers
[2017-01-09 15:09] LABS: URINE APPEARANCE CLEAR (CLEAR); URINE BILIRUBIN NEG (NEG); URINE COLOR YELLOW; URINE EPITHELIAL CELL AUTO 0-5 /lpf (0-5); URINE NITRITE POS (NEG); URINE SPECIFIC GRAVITY 1.014 (1.000-1.030); UROBILINOGEN NEG (NEG); ZZUR CULT IF INDIC CLEAN CATCH YES
[2017-01-09 15:16] LABS: MANUAL MICROSCOPIC REQUIRED? NO; REVIEW REQ? NO
[2017-01-09 15:17] VITALS: BP 136/73; PULSE 61; O2SAT 95
--- NOTE | 2017-01-11 17:39 | Pharmacy Progress Note ---
ED Pharmacist Culture FollowUp Date of Service: Jan 11, 2017. Called patient regarding urine culture. Spoke with family member who noted patient was admitted to [facility] ([facility]) s/p rectal exam. Called [facility] , transferred to RN taking care of patient (Thania Crow). Requested results be faxed to [facility]. Management to be done by [facility] providers. Called [facility] turn machine operator (above #) who provided fax number of for [phone]. I faxed the results to the above provided number and received the fax confirmation. No further intervention required by ED staff at this time.
[2017-02-06] MEDS ORDERED: LOSA1TAB PO (08:00)
[2017-02-06] MEDS ORDERED: ACET-1047 PO (08:00)
[2017-02-06] MEDS ORDERED: PROP40TA5 PO (08:00)
[2017-02-06] MEDS ORDERED: METR-163 PO (08:00)
[2017-02-06] MEDS ORDERED: INSU70IN2 SC ×2 (08:00)
[2017-02-06] MEDS ORDERED: CIPR1TAB10 PO (08:00)
[2017-02-06] MEDS ORDERED: CALC500C70 PO (08:00)
[2017-02-06] MEDS ORDERED: LEVO75TA5 PO (08:00)
[2017-02-06] MEDS ORDERED: FRS/40 PO (08:00)
[2017-02-06] MEDS ORDERED: LANS30CA12 PO (08:00)
[2017-02-06] MEDS ORDERED: MELO15TA10 PO (08:00)
[2017-02-06] MEDS ORDERED: PRED20TA PO (08:00)
[2017-02-06] MEDS ORDERED: FLM4 PO (08:00)
[2017-02-06] MEDS ORDERED: RMCI IV (08:05)
== END 2017-01-09 15:18 | disposition home or self-care (01) ==
LOC: C.EDB 12:50 → C.EDC 15:18
DX: R42 Dizziness and giddiness (principal); E86.0 Dehydration; F41.9 Anxiety disorder, unspecified; Z82.49 Family history of ischemic heart disease and other diseases of the circulatory system; Z79.82 Long term (current) use of aspirin; Z79.4 Long term (current) use of insulin

== ENCOUNTER 2017-01-29 10:48 | Inpatient (IN) | payer OTHER, BC ==
[~2017-01-29] VITALS: Ht 152.4 cm; Wt 78.0 kg
[2017-01-29] MEDS ORDERED: LANS30CA12 PO (11:33)
[2017-01-29] MEDS ORDERED: METR-163 PO (11:33)
[2017-01-29 13:03] LABS: BASO % 0.1 %; BASO ABS # 0.01 K/uL (0-0.2); COMPLETE YES; HEMATOCRIT 34.7 % (37-47); IG% 0.7 %; LYMPH % 16.4 %; LYMPH ABS # 1.25 K/uL (1.2-3.4); MEAN CORPUSCULAR HEMOGLOBIN 25.2 pg (25-34); MEAN PLATELET VOLUME 9.4 fL (7.4-10.4); MONO % 7.6 %; NEUT % 75.2 %; PLATELET COUNT 295 K/uL (130-400); RED BLOOD COUNT 4.13 M/uL (4.2-5.4); WHITE BLOOD COUNT 7.63 K/uL (4.8-10.8)
[2017-01-29 13:22] LABS: ALT/SGPT 16 U/L (12-78); AST/SGOT 15 U/L (15-37); BLOOD UREA NITROGEN 27 mg/dl (7-18); BUN/CREATININE RATIO 26.8 (10-20); CALCIUM 8.9 mg/dl (8.5-10.1); CARBON DIOXIDE 26 mmol/L (21-32); CHLORIDE 107 mmol/L (98-107); GLUCOSE 92 mg/dl (70-99); POTASSIUM 3.7 mmol/L (3.5-5.1); SODIUM 140 mmol/L (136-145)
[2017-01-29 13:27] LABS: ALB/GLOB RATIO 0.7 (0.9-2); ALKALINE PHOSPHATASE 60 U/L (45-117)
--- NOTE | 2017-01-29 13:51 | DIAGNOSTIC IMAGING REPORT ---
TWO VIEW CHEST CLINICAL HISTORY: Dyspnea. FINDINGS: AP and lateral chest radiographs are compared to study dated 01/09/2017. The AP view is degraded by patient rotation and apical lordotic positioning. The heart is mildly enlarged and there is atherosclerotic calcification of the thoracic aorta. The lungs and pleural spaces are clear noting minimal dependent atelectasis. There is no pneumothorax. The skeletal structures are osteopenic. Advanced degenerative change and scoliosis is seen in the thoracic spine. There is advanced arthritic change in the shoulders. Calcified joint bodies are seen bilaterally. Superior subluxation of the humeral heads suggests chronic rotator cuff injury. IMPRESSION: Cardiomegaly with no acute cardiopulmonary abnormality. Electronically signed by: Aiden Lo M.D. 01/29/2017 1:50 PM Dictated Date/Time: 01/29/2017 1:48 PM
[2017-01-29] MEDS ORDERED: DEXTROSE 25% 250 MG/ML 10 ML SYR IV STA (15:02)
[2017-01-29] MEDS ORDERED: DEXTROSE 50% 50 ML SYR IV SCH ×2 (15:15→20:30)
[2017-01-29 15:42] LABS: URINE APPEARANCE CLEAR (CLEAR); URINE BILIRUBIN NEG (NEG); URINE COLOR YELLOW; URINE NITRITE POS (NEG); URINE SPECIFIC GRAVITY 1.018 (1.000-1.030); UROBILINOGEN NEG (NEG)
[2017-01-29 15:44] LABS: MANUAL MICROSCOPIC REQUIRED? NO; REVIEW REQ? NO
[2017-01-29] MEDS ORDERED: CEFTRIAXONE SOD INJ 1 GM ADDVIAL IV STA (15:51)
[2017-01-29] MEDS ORDERED: SODIUM CHLORIDE 0.9% 1000ML 1,000 ML IV STA (15:52)
[2017-01-29] MEDS ORDERED: OPTIRAY 320 IV PRN (16:00)
--- NOTE | 2017-01-29 16:09 | DIAGNOSTIC IMAGING REPORT ---
(CHEST FOR PE) ANGIO WITH HISTORY: 81-year-old female presents with acute shortness of breath. TECHNIQUE: Multiple CTA images of the chest were obtained after the intravenous administration of 116 ml optiray 320. Coronal and sagittal MIPS were obtained from the axial data set and were submitted for review. Comparison: Chest radiograph of same day. Findings: CTA: There is mild chamber cardiac enlargement with coronary arterial calcifications present. The thoracic aorta appears normal in course and caliber with moderate atherosclerotic plaquing. No aortic dissection or aneurysm. The pulmonary arterial tree is well opacified to the level of the proximal subsegmental branches and demonstrates no focal filling defects to suggest pulmonary thromboembolic disease. CT CHEST: Thyroid is homogeneous. Calcified lymph nodes are seen within the mediastinum and left clair compatible with prior granulomatous disease. There are a few mildly prominent nonenlarged mediastinal lymph nodes seen, for example left paratracheal lymph node measures 1.9 x 0.7 cm. Mildly prominent right hilar lymph node measures 1.4 x 1.0 cm. These are likely reactive. Cuspid granuloma of left upper lobe is noted. No pneumothorax or pleural effusion. Linear and subsegmental consolidative opacities of the dependent lung bases suggest atelectasis with mild subsegmental pleural minimal scarring of the right middle lobe. Mosaic attenuation is seen within the lungs bilaterally. There is a 6 mm noncalcified pulmonary nodule present within the lateral basal segment right lower lobe as seen on image 45 of series 3. Central airways are patent. There is mild bronchial wall thickening at the level of the lung bases. Prior cholecystectomy. Upper abdominal structures are within normal limits. 2.2 x 1.8 cm low attenuating lesion of the anterior left hepatic lobe suggests simple cyst. Advanced degenerative changes are seen within the shoulders. The level intervertebral disc space narrowing is present. Impression: 1. No acute aortic pathology or evidence of pulmonary thromboembolic disease. 2. Mild air trapping with bronchitis and bibasilar atelectasis. 3. 6 mm noncalcified pulmonary nodule involves the lateral basal segment right lower lobe. Follow-up according to the guidelines below recommended. Please refer to below summary of Fleischner criteria recommendations for follow-up of incidental CT nodules (Vipin Corona, Guidelines for management of small pulmonary nodules detected on CT scans: A statement from the Fleischner Society, Radiology 237: [phone].) SOLID NODULES Solitary nodule size: <6 mm * Low risk patients: no follow-up needed * high risk patients: optional CT at 12 months Solitary nodule size: 6-8 mm * Low risk patients: follow-up at 6-12 months, then consider further follow-up at 18-24 months * high risk patients: initial follow-up CT at 6-12 months and then at 18-24 months if no change Solitary nodule size: >8 mm * either low or high risk patients - consider follow-up CT at 3 months, and/or CT-PET, and/or biopsy Multiple nodules size: <6 mm * Low risk patients: no routine follow-up * high risk patients: optional CT at 12 months Multiple nodules size: 6-8 mm * Low risk patients: follow-up at 3-6 months, then consider further follow-up at 18-24 months * high risk patients: follow-up at 3-6 months, then at 18-24 months if no change Multiple nodules size: >8 mm * Low risk patients: follow-up at 3-6 months, then consider further follow-up at 18-24 months * high risk patients: follow-up at 3-6 months, then at 18-24 months if no change Note: newly detected indeterminate nodule in persons 35 years of age or older. * Low risk patients: minimal or absent history of smoking and/or other known risk factors * high risk patients: history of smoking or of other known risk factors (e.g. first degree relative with lung cancer, or exposure to asbestos, radon, uranium) * if a nodule up to 8 mm is partly solid or is ground glass further follow-up is required after 24 months to exclude possible slow growing adenocarcinoma (FREDRICK) Electronically signed by: Nikita Jolley 01/29/2017 4:08 PM Dictated Date/Time: 01/29/2017 3:59 PM
--- NOTE | 2017-01-29 16:12 | EMERGENCY ROOM VISIT NOTE ---
History Report prepared by Eliana: Freddie Jaimes Under the Supervision of: Dr. Cheryl Villatoro D.O. First contact with patient: 11:55 Chief Complaint: WEAKNESS Stated Complaint: POST SURGERY, 1 WEEK- REFFERED BY DOCTOR Nursing Triage Summary: triage note: pt reports generalized weakness x 1 week. "i was just at [facility] for a week i had surgery." History of Present Illness The patient is a 81 year old female who presents to the Emergency Room with complaints of persistent generalized weakness beginning a few weeks ago. She was referred to the ED by her PCP for her weakness due to her not being able to care for her. She states that she has been unable to walk. The patient states that she has been having trouble with seeing and hearing as well. She states that she is able to move her legs, but cannot support her weight. She also complains of tingling and swelling in her legs and shortness of breath with exertion. The patient denies any leg pain, or abdominal pain. She notes that her back hurts when she is in bed. She is on Lasix. The patient has a history of Crohn's disease and notes that she has anal fissures. She notes that she had a colonoscopy and surgery about a week ago. She states that her symptoms have worsened since the procedure. Per , the patient appears to be sedated ever since she woke up from her anesthesia for her procedure. The patient notes that she was under anesthesia earlier this year without problem. Source of History: patient Onset: A few weeks ago Position: other (generalized) Quality: other (weakness) Timing: other (persistent) Associated Symptoms: + SOB (with exertion), + back pain (in bed), No abdominal pain Note: The patient also complains of leg swelling and tingling. She denies any leg pain. Review of Systems See HPI for pertinent positives & negatives. A total of 10 systems reviewed and were otherwise negative. Past Medical & Surgical Medical Problems: (1) CROHN'S, DIVERTICULITIS,WEAKNESS (2) DEHYD. UTI, ANEMIA (3) Hemorrhoids (4) History of abdominal hernia Surgical Problems: (1) History of cholecystectomy (2) History of colon resection (3) History of hysterectomy Family History Heart disease Hypertension Social History Smoking Status: Never Smoker Alcohol Use: none Drug Use: none Marital Status: Housing Status: lives with family Occupation Status: retired Current/Historical Medications Scheduled Aspirin (Aspirin Chewable), 81 MG PO QPM Calcium/Vitamin D (Os-Karan 500 Plus D), 1 TAB PO QAM Furosemide (Lasix), 40 MG PO QAM Insulin Isophan/Regular (Novolin 70/30), 70 UNITS SC QAM Insulin Isophan/Regular (Novolin 70/30), 48 SC QPM Lansoprazole (Prevacid), 30 MG PO QAM Levothyroxine Sodium (Levothyroxine Sodium), 1 TAB PO QAM Losartan Potassium (Cozaar), 50 MG PO QAM Meloxicam (Mobic), 15 MG PO QAM Metronidazole (Flagyl), 500 MG PO TID Prednisone (Prednisone), 20 MG PO BID Propranolol Hcl (Propranolol Hcl), 1 TAB PO BID Allergies Coded Allergies: No Known Allergies (Verified , 01/29/17) Physical Exam Vital Signs Date Time Temp Pulse Resp B/P (MAP) Pulse Ox O2 Delivery O2 Flow Rate FiO2 01/29/17 18:54 60 158/70 97 01/29/17 18:48 51 16 01/29/17 18:33 47 14 01/29/17 18:18 67 25 01/29/17 18:03 66 22 01/29/17 17:48 57 18 01/29/17 17:45 90 20 131/69 98 Room Air 01/29/17 17:40 131/69 01/29/17 17:33 63 17 96 01/29/17 17:18 65 18 01/29/17 17:03 54 13 97 01/29/17 16:48 67 21 98 01/29/17 16:36 75 20 180/80 98 Room Air 01/29/17 16:33 66 21 01/29/17 16:18 63 16 01/29/17 16:04 62 01/29/17 16:03 64 17 01/29/17 15:18 59 22 95 01/29/17 15:16 180/80 01/29/17 15:03 56 20 01/29/17 14:50 47 18 180/80 96 Room Air 01/29/17 13:03 63 19 92 01/29/17 12:52 66 23 134/69 97 Room Air 01/29/17 12:48 57 21 96 01/29/17 12:33 60 24 97 01/29/17 12:30 134/69 01/29/17 12:18 70 30 01/29/17 12:03 71 17 01/29/17 11:48 63 29 01/29/17 11:33 67 24 01/29/17 11:27 65 01/29/17 10:55 36.5 72 18 130/69 91 Room Air Physical Exam GENERAL: alert, well appearing, well nourished, no distress, non-toxic EYE EXAM: normal conjunctiva, PERRL and EOM's grossly intact OROPHARYNX: no exudate, no erythema, lips, buccal mucosa, and tongue normal and mucous membranes are mildly dry. NECK: supple, no nuchal rigidity, no adenopathy, non-tender LUNGS: Clear to auscultation. Normal chest wall mechanics HEART: no murmurs, S1 normal and S2 normal ABDOMEN: abdomen soft, non-tender, normo-active bowel sounds, no masses, no rebound or guarding. Small, easily reducible umbilical hernia BACK: Back is symmetrical on inspection and there is no deformity, no midline tenderness, no CVA tenderness. SKIN: no rashes and no bruising UPPER EXTREMITIES: upper extremities are grossly normal. LOWER EXTREMITIES: 2+ pitting edema. NEURO EXAM: Normal sensorium, cranial nerves II-XII grossly intact, normal speech, no gross weakness of arms, no gross weakness of legs. Medical Decision & Procedures ER Provider Diagnostic Interpretation: Radiology results have been interpreted by the radiologist and reviewed by me. TWO VIEW CHEST FINDINGS: AP and lateral chest radiographs are compared to study dated 01/09/2017. The AP view is degraded by patient rotation and apical lordotic positioning. The heart is mildly enlarged and there is atherosclerotic calcification of the thoracic aorta. The lungs and pleural spaces are clear noting minimal dependent atelectasis. There is no pneumothorax. The skeletal structures are osteopenic. Advanced degenerative change and scoliosis is seen in the thoracic spine. There is advanced arthritic change in the shoulders. Calcified joint bodies are seen bilaterally. Superior subluxation of the humeral heads suggests chronic rotator cuff injury. IMPRESSION: Cardiomegaly with no acute cardiopulmonary abnormality. Electronically signed by: Aiden Lo M.D. ([facility]) ANGIO WITH HISTORY: 81-year-old female presents with acute shortness of breath. TECHNIQUE: Multiple CTA images of the chest were obtained after the intravenous administration of 116 ml optiray 320. Coronal and sagittal MIPS were obtained from the axial data set and were submitted for review. Comparison: Chest radiograph of same day. Findings: CTA: There is mild chamber cardiac enlargement with coronary arterial calcifications present. The thoracic aorta appears normal in course and caliber with moderate atherosclerotic plaquing. No aortic dissection or aneurysm. The pulmonary arterial tree is well opacified to the level of the proximal subsegmental branches and demonstrates no focal filling defects to suggest pulmonary thromboembolic disease. CT CHEST: Thyroid is homogeneous. Calcified lymph nodes are seen within the mediastinum and left clair compatible with prior granulomatous disease. There are a few mildly prominent nonenlarged mediastinal lymph nodes seen, for example left paratracheal lymph node measures 1.9 x 0.7 cm. Mildly prominent right hilar lymph node measures 1.4 x 1.0 cm. These are likely reactive. Cuspid granuloma of left upper lobe is noted. No pneumothorax or pleural effusion. Linear and subsegmental consolidative opacities of the dependent lung bases suggest atelectasis with mild subsegmental pleural minimal scarring of the right middle lobe. Mosaic attenuation is seen within the lungs bilaterally. There is a 6 mm noncalcified pulmonary nodule present within the lateral basal segment right lower lobe as seen on image 45 of series 3. Central airways are patent. There is mild bronchial wall thickening at the level of the lung bases. Prior cholecystectomy. Upper abdominal structures are within normal limits. 2.2 x 1.8 cm low attenuating lesion of the anterior left hepatic lobe suggests simple cyst. Advanced degenerative changes are seen within the shoulders. The level intervertebral disc space narrowing is present. Impression: 1. No acute aortic pathology or evidence of pulmonary thromboembolic disease. 2. Mild air trapping with bronchitis and bibasilar atelectasis. 3. 6 mm noncalcified pulmonary nodule involves the lateral basal segment right lower lobe. Follow-up according to the guidelines below recommended. Please refer to below summary of Fleischner criteria recommendations for follow-up of incidental CT nodules (Vipin Corona, Guidelines for management of small pulmonary nodules detected on CT scans: A statement from the Fleischner Society, Radiology 237: [phone].) SOLID NODULES Solitary nodule size: <6 mm * Low risk patients: no follow-up needed * high risk patients: optional CT at 12 months Solitary nodule size: 6-8 mm * Low risk patients: follow-up at 6-12 months, then consider further follow-up at 18-24 months * high risk patients: initial follow-up CT at 6-12 months and then at 18-24 months if no change Solitary nodule size: >8 mm * either low or high risk patients - consider follow-up CT at 3 months, and/or CT-PET, and/or biopsy Multiple nodules size: <6 mm * Low risk patients: no routine follow-up * high risk patients: optional CT at 12 months Multiple nodules size: 6-8 mm * Low risk patients: follow-up at 3-6 months, then consider further follow-up at 18-24 months * high risk patients: follow-up at 3-6 months, then at 18-24 months if no change Multiple nodules size: >8 mm * Low risk patients: follow-up at 3-6 months, then consider further follow-up at 18-24 months * high risk patients: follow-up at 3-6 months, then at 18-24 months if no change Note: newly detected indeterminate nodule in persons 35 years of age or older. * Low risk patients: minimal or absent history of smoking and/or other known risk factors * high risk patients: history of smoking or of other known risk factors (e.g. first degree relative with lung cancer, or exposure to asbestos, radon, uranium) * if a nodule up to 8 mm is partly solid or is ground glass further follow-up is required after 24 months to exclude possible slow growing adenocarcinoma (FREDRICK) Electronically signed by: Nikita Jolley 01/29/2017 4:08 PM Dictated Date/Time: 01/29/2017 3:59 PM Laboratory Results Test 01/29/17 12:45 01/29/17 15:30 D-Dimer 2080 ug/L FEU (0-500) Total Bilirubin 0.5 mg/dl (0.2-1) Aspartate Amino Transf (AST/SGOT) 15 U/L (15-37) Alanine Aminotransferase (ALT/SGPT) 16 U/L (12-78) Alkaline Phosphatase 60 U/L (45-117) Troponin I < 0.015 ng/ml (0-0.045) Pro-B-Type Natriuretic Peptide 498 pg/ml (0-1800) Total Protein 6.0 gm/dl (6.4-8.2) Albumin 2.5 gm/dl (3.4-5.0) Globulin 3.5 gm/dl (2.5-4.0) Albumin/Globulin Ratio 0.7 (0.9-2) Urine Color YELLOW Urine Appearance CLEAR (CLEAR) Urine pH 7.0 (4.5-7.5) Urine Specific Delmar 1.018 (1.000-1.030) Urine Protein NEG (NEG) Urine Glucose (UA) NEG (NEG) Urine Ketones NEG (NEG) Urine Occult Blood NEG (NEG) Urine Nitrite POS (NEG) Urine Bilirubin NEG (NEG) Urine Urobilinogen NEG (NEG) Urine Leukocyte Esterase TRACE (NEG) Urine WBC (Auto) 1-5 /hpf (0-5) Urine RBC (Auto) 0-4 /hpf (0-4) Urine Hyaline Casts (Auto) 1-5 /lpf (0-5) Urine Epithelial Cells (Auto) 5-10 /lpf (0-5) Urine Bacteria (Auto) 3+ (NEG) Laboratory results per my review. Medications Administered Medications (Trade) Dose Ordered Sig/Maura Route Start Time Stop Time Status Last Admin Dose Admin Dextrose (Dextrose 50% 50ML Syringe) 5 ml TODAY@1515 IV 01/29/17 15:15 01/29/17 15:16 DC 01/29/17 15:17 5 ML Ceftriaxone Sodium (Rocephin Inj) 1 gm NOW STAT IV 01/29/17 15:51 01/29/17 15:52 DC 01/29/17 16:35 1 GM Sodium Chloride 1,000 ml @ 250 mls/hr Q4H STAT IV 01/29/17 15:52 01/29/17 19:41 DC 01/29/17 16:35 250 MLS/HR ECG Indication: weakness Rate (beats per minute): 62 Rhythm: normal sinus Findings: T-wave inversion (Lead 3), no acute ischemic change, prolonged QT, no ectopy Comparison ECG Date: January 29, 2017 Change: no significant change ED Course 1200: The patient was evaluated in room C9. A complete history and physical exam was performed. 1515: Ordered Dextrose 50% 5 mL IV. 1456: Nursing staff alerted me that while attempting to place a catheter, they noticed something in the patient's vaginal area. I reassessed the patient and noticed a small blue catheter between the patient's rectum and vagina. Old records obtained from [facility] for patient's recent procedure, patient had a seton catheter placed. Medical Decision Differential diagnosis: Etiologies such as migraine headache, meningitis, sinusitis, CO exposure, ICH, SAH, infection, tumor, headache, sinus thrombosis, arterial dissection, renal dysfunction, electrolyte abnormality, infectious etiology, CVA, postprocedural consultation, GI bleed, colitis, perforation, bowel obstruction as well as others were entertained. Blood pressure screening: Patient was found to have an elevated blood pressure and was referred to their primary doctor for recheck and further treatment. Medication Reconciliation: I attest that I have personally reviewed the patient' s current medication list. Patient with recent procedure, no apparent post procedural complication. Patient with worsening weakness of ambulatory dysfunction, referred here by her partner care physician for admission. Patient found to have urinary tract infection, and questionable mild diverticulitis. Patient's family doctor contacted and he will admit the patient. Did not want any additional orders antibiotics placed in the patient as he was en route to see her. Patient's vital signs otherwise stable other labs reassuring, doubt bacteremia/sepsis. Consults Time Called: 1610 Consulting Physician: Pretty Alegria Returned Call: [phone] Pretty Alegria also for admission. He has been following the patient's evaluation from the office during the day today. Has no other request for orders at this time is coming to the emergency room right now to complete the patient's admission. Impression Primary Impression: Weakness Additional Impressions: UTI (urinary tract infection) Ambulatory dysfunction Diverticulitis Scribe Attestation The scribe's documentation has been prepared under my direction and personally reviewed by me in its entirety. I confirm that the note above accurately reflects all work, treatment, procedures, and medical decision making performed by me. Departure Information Dispostion Still a Patient Referrals Alfredo Lancaster M.D. (PCP) Patient Instructions My [facility] Problem Qualifiers Additional Impressions: UTI (urinary tract infection) Urinary tract infection type: acute cystitis Hematuria presence: with hematuria Qualified Codes: N30.01 - Acute cystitis with hematuria Diverticulitis Diverticulitis site: unspecified part of intestinal tract Diverticulitis bleeding: unspecified bleeding status Diverticulitis complication: unspecified complication status Qualified Codes: K57.92 - Diverticulitis of intestine, part unspecified, without perforation or abscess without bleeding
--- NOTE | 2017-01-29 16:12 | DIAGNOSTIC IMAGING REPORT ---
CT ABD/PELVIS IV CONTRAST ONLY CLINICAL HISTORY: Postoperative abdominal pain SHORTNESS OF BREATH. ELEVATED D-DIMER. COMPARISON STUDY: None. TECHNIQUE: Following the IV administration of 116 mL of Optiray-320, CT scan of the abdomen and pelvis was performed from the lung bases to the proximal femurs. Images are reviewed in the axial, sagittal, and coronal planes. IV contrast was administered without complication. CT DOSE: 1338.30 mGy.cm FINDINGS: Lower chest: There are bibasal atelectatic changes. There is a 12 x 7 x 7 mm right middle lobe pulmonary nodule. Liver: There is a 24 mm lobulated left lobe cyst. Gallbladder: Surgically absent Spleen: Normal in size and attenuation. Pancreas: Unremarkable. Adrenal glands: Unremarkable. Kidneys: There are left renal hypodensities measuring up to 9 mm. These statistically represent cysts. There is no hydronephrosis. Bowel: There are no transition zones indicate bowel obstruction. The patient appears be status post a partial right colectomy. There is scattered colonic diverticula present. There is minor sigmoid wall thickening with minimal infiltration of the perisigmoid fat. The findings may represent minimal diverticulitis. Peritoneum: There is no intraperitoneal free air or abdominal ascites. There are multiple fat-containing ventral hernias. Vasculature: The abdominal aorta is normal in course and caliber. Adenopathy: There are a few small mesenteric lymph nodes at the small bowel colonic anastomosis. Pelvic viscera: The uterus is surgically absent. Skeletal structures: There are advanced multilevel spondylitic changes. There is L1-2 fusion. No destructive lesions are visualized. IMPRESSION: 1. Postsurgical changes are partial right hemicolectomy 2. Diverticulosis. Mild sigmoid wall thickening with minimal infiltration the perisigmoid fat. The findings are consistent with age-indeterminate minimal diverticulitis. 3. Surgically absent gallbladder and uterus 4. Multiple fat-containing ventral hernias 5. Left lobe hepatic cyst 6. 12 x 7 x 7 mm right middle lobe pulmonary nodule. The chest will be evaluated separately in a chest CT report. Electronically signed by: Nate Park M.D. 01/29/2017 4:10 PM Dictated Date/Time: 01/29/2017 4:01 PM
[2017-01-29] MEDS ORDERED: ONDANSETRON INJ 2 MG/ML 2 ML VIAL IV PRN (17:00)
[2017-01-29] MEDS ORDERED: ACETAMINOPHEN 325 MG TAB PO PRN (17:00)
[2017-01-29 19:59] VITALS: BP 177/81; PULSE 55; TEMP 36.3; O2SAT 98
[2017-01-29] MEDS ORDERED: DEXTROSE 50% 50 ML SYR ONE (20:09)
[2017-01-29] MEDS ORDERED: NURSING VERBAL MED ORDER ONE (20:15)
[2017-01-29] MEDS: D5W AND 1/2NSS + 20MEQ KCL 1,000 ML IV SCH (20:25)
[2017-01-29] MEDS: CIPROFLOXACIN / D5W 400 MG in PREMIXED IN D5W 200 ML IV SCH (20:25)
[2017-01-29] MEDS: METRONIDAZOLE / NSS 500 MG in PREMIXED NSS 100 ML IV SCH (20:25)
[2017-01-29 20:35] VITALS: BP 151/69; PULSE 66; O2SAT 98
[2017-01-29] MEDS: ASPIRIN 81 MG CHEW PO SCH (20:38)
[2017-01-29] MEDS: PROPRANOLOL HCL 10 MG TAB PO SCH (20:38)
[2017-01-29] MEDS: HEPARIN SOD 5000 UNIT/0.5 ML CARP SQ SCH (20:53)
--- NOTE | 2017-01-29 21:16 | History and Physical ---
History & Physical Date of Service Jan 29, 2017. History & Physical Chief Complaint: 81-year-old female admitted through the emergency room with multiple problems including severe Crohn's disease with exacerbation and complications with perianal fistula. She also has evidence of sigmoid diverticulitis and urinary tract infection. She is feeling extremely weak and having difficulty walking and ambulating. Present Illness: Patient with multiple medical problems including arterial hypertension, essential tremor, type 2 diabetes mellitus, osteoarthritis, has had multiple joint replacements. She has a history of partial colectomy many years ago because of her large villous adenoma. She was diagnosed with Crohn's disease in July 2015 when she presented with fever and chills anemia. Patient was recently seen in the office. She had severe inflammation in the perianal area with multiple very deep crevices. In the past she was treated for Crohn's disease but she did discontinue her medications on her own. One of the issues was the cost. And she also did not feel that she needed to continue the medication indefinitely. When she was hospitalized in July 2015 she was seen by Dr. Gary Giles and GI consultation. When I saw her in the office with a severe exacerbation I did restart her on prednisone 20 mg daily and also on mesalamine. She was referred back to Dr. Giles. He was quite alarmed by the condition and the amount of the inflammation in the perianal area. He was able to refer her promptly to see a colorectal surgeon. She was evaluated. Arrangements were made for her to go to [facility]. She had a colonoscopy. Also had a procedure to address the problem with her fistulas. There was a mention of the possibility that she may need a colostomy. She does have a follow-up with the colorectal surgeon here with the [facility] in [place] on Sunday. Patient stated that since her surgery she has been feeling very weak. She has difficulty ambulating. Her at home also dealing with his on medical issues and her care at home has been quite difficult. She did call the office this morning. Describing her condition. She was sent to the emergency room. She had an extensive evaluation by Dr. Villatoro. In the emergency room she was complaining of lower abdominal pain. She was catheterized. 800 mL of urine were drained. I saw the patient in the emergency room. Arrangements were made for admission. Past Medical History: 1. Crohn's disease. As noted it was diagnosed in July 2015. She was initially treated with her treatment was discontinued by herself. Recent severe exacerbations as detailed above. 2. Chronic sinusitis. She has received multiple courses of antibiotics. On 07/27/2016 she underwent surgery for her chronic sinusitis. 3. Type 2 diabetes mellitus. Long standing. She is currently on insulin. 4. Cholecystectomy in 1991 5. Total abdominal hysterectomy and bilateral salpingo-oophorectomy in 1984 for fibroids. 6. Left breast biopsy in 1986 which was benign 7. She is a 4 para 3. She had 1 miscarriage at 6 months. 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 8. Tonsillectomy at age 31 9. Left total knee arthroplasty in 1996. 10. Right total knee arthroplasty in 1994 11. In 2006 and she had a colonoscopy done. She had a large villous adenoma. She had a left hemicolectomy. She did have incisional hernia prior to that and it was repaired at the same time. Social History: She is . Has 2 children. Denied any smoking. Very occasional alcoholic drink. No excessive cough at 0 soft drinks. 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 She is retired for many years. Family History: Her mother in her 90s. Had coronary artery disease. She had a prior myocardial infarction in 1991. At that time she was 76 years old. Her father at age 30 had an IL. She has 1 stepbrother and one stepsister. Children alive and well. Allergies: None Current Medications: All her medications are as noted on her home medication list. Review of Systems: She has been complaining of feeling very anxious. She had panic attacks in the past. She was evaluated in the emergency room. All of these problems have been noticeable since the recent exacerbation of her Crohn's disease. She denied any headache. She is complaining of lightheadedness. No earache. No neck pain. No chest pain no shortness of breath. She was complaining of lower abdominal pain. I think most likely that was because of the urinary retention. No back pain. She is feeling very weak in her legs. She is having difficulty ambulating. There is no ankle edema. Examination: General: She is feeling very weak and tired. Chronically ill. Vital Signs: On arrival to the emergency room her blood pressure was 130/69 pulse 72 respiration 18 temperature 36.5 oxygen saturation 91% on room air Skin: Warm and dry. Multiple bruises on her abdominal wall from her recent heparin injections during her hospitalization. HEENT: No evidence of any mucosal abnormalities. Neck: Supple. No adenopathy no thyromegaly. No JVD. Minimal right carotid bruit. Chest: Is normal. Heart: Regular heart sounds without any evident murmur rub or gallop. Lungs: Are clear. Abdomen: Soft nontender. No organomegaly or masses. Multiple bruises at the site of the heparin injections. Back: No spinal tenderness Extremities: No edema clubbing or cyanosis. Surgical scars. Good pulses. Spider varicosities both legs. Neurological Examination: She is alert. She is quite forgetful. Does not recall anything that happened to her what she was at [facility]. She is not aware what she had as procedure. There is no evidence of lateralized deficit but she is complaining of generalized weakness. Laboratory Tests: WBC count 7630, hemoglobin 10.4, hematocrit 34.7, platelet count 295,000. Sodium 140, potassium 3.7, chloride 107, CO2 26, BU and 27, creatinine 1.0, glucose 92, calcium 8.9, total bilirubin 0.5, AST 15, AST 16, alkaline phosphatase 60, troponin I less than 0.015, pro BNP 498. Total protein 6.0, albumin 2.5, Urinalysis showed positive nitrites. Trace leukocyte esterase. 1-5 WBCs, 0-4 RBCs. Multiple imaging studies were done. Her chest x-ray showed no acute abnormalities. CT scan of the chest showed no evidence of any pulmonary emboli. CT scan of the abdomen and pelvis showed evidence of mild diverticulitis in the sigmoid colon. Assessment: 1. Crohn's disease. Severe. Severe exacerbation. Perianal fistulas. 2. Acute diverticulitis 3. Urinary tract infection 4. Urinary retention 5. Severe generalized weakness. 6. Type 2 diabetes mellitus 7. Arterial hypertension 8. History of chronic sinusitis requiring surgery 9. Mental status changes Plan: Patient was admitted to medical bed. Resuscitation level I. All her laboratory tests were ordered. Patient was started on IV ciprofloxacin and metronidazole. She did receive 1 dose of Rocephin in the emergency room. Her condition will be monitored. DVT prophylaxis. Monitoring her blood sugars. Insulin coverage. I will obtain detainees as far as the surgical procedure that she had at [facility]. Physical and occupational therapies were ordered for evaluation. There has been quite a bit of difficulty with her care at home. We'll see how she does during her hospitalization and need to decide on the possibility that she may need rehabilitation admission. I did call and speak with her and with her daughter. Her condition was discussed. The plan for admission was discussed.
[2017-01-29 22:05] VITALS: BP 151/69; PULSE 66; TEMP 36.3; O2SAT 98; Ht 152.4 cm; Wt 78.0 kg
[2017-01-29 23:12] VITALS: BP 147/70; PULSE 68; TEMP 36.4; O2SAT 98
[2017-01-30] MEDS: METRONIDAZOLE / NSS 500 MG in PREMIXED NSS 100 ML IV SCH ×3 (03:49→20:15)
[2017-01-30] MEDS: LEVOTHYROXINE 75 MCG TAB PO SCH (05:54)
[2017-01-30] MEDS: D5W AND 1/2NSS + 20MEQ KCL 1,000 ML IV SCH (05:54)
[2017-01-30 06:04] LABS: COMPLETE YES; EOS % 0.2 %; IG% 0.4 %; LYMPH % 15.9 %; LYMPH ABS # 0.82 K/uL (1.2-3.4); MEAN CELL VOLUME 84.2 fL (80-100); MEAN CORPUSCULAR HEMOGLOBIN 25.5 pg (25-34); MEAN CORPUSCULAR HGB CONC 30.3 g/dl (32-36); MEAN PLATELET VOLUME 8.7 fL (7.4-10.4); MONO % 7.8 %; NEUT % 75.7 %; PLATELET COUNT 235 K/uL (130-400); RED BLOOD COUNT 3.92 M/uL (4.2-5.4); WHITE BLOOD COUNT 5.16 K/uL (4.8-10.8)
[2017-01-30 06:45] LABS: BUN/CREATININE RATIO 19.6 (10-20); CALCIUM 8.6 mg/dl (8.5-10.1); CREATININE 0.94 mg/dl (0.60-1.20)
[2017-01-30] MEDS: CIPROFLOXACIN / D5W 400 MG in PREMIXED IN D5W 200 ML IV SCH ×2 (07:23→20:15)
[2017-01-30 07:39] VITALS: BP 144/68; PULSE 50; TEMP 36.8; O2SAT 98
[2017-01-30] MEDS: LOSARTAN POTASSIUM 50 MG TAB PO SCH (08:33)
[2017-01-30] MEDS: PROPRANOLOL HCL 10 MG TAB PO SCH ×2 (08:33→20:37)
[2017-01-30] MEDS: PANTOprazole SOD 40 MG TAB PO SCH (08:33)
--- NOTE | 2017-01-30 08:38 | Clinical Documentation Query ---
Dr. [facility] : CLINICAL DOCUMENTATION QUERY Patient is an 81 year old female admitted with evidence of sigmoid diverticulitis and UTI. She is described as "forgetful" and notes that she "does not recall anything that happened to her what she was at ". Documentation includes "mental status changes". As appropriate, consider documentation as suggested below as this directly impacts DRG assignment. In your clinical opinion is this patient being managed for: ( ) Metabolic encephalopathy secondary to UTI, acute diverticulitis ( ) Other explanation of clinical findings (Please Explain) ( ) Unable to determine (Please Define) ( ) Need to Discuss ( x ) Not Agree The medical record reflects the following clinical findings, treatment, and risk factors. Clinical Indicators: As above Treatment: Admission to medical, labs, IV antibiotics Risk Factors: Age, infection. Please clarify and document your clinical opinion in the progress notes and discharge summary. Terms such as "probable", "suspected", "likely", "questionable", "possible", or "still to be ruled out" are acceptable. IF IN AGREEMENT, YOU MUST DOCUMENT ABOVE DIAGNOSTIC STATEMENT IN DAILY PROGRESS NOTES AND DISCHARGE SUMMARY. This document is not part of the patient's record. Thank You, Gary Rizzo, RN [phone]
[2017-01-30] MEDS: HEPARIN SOD 5000 UNIT/0.5 ML CARP SQ SCH ×2 (08:39→20:42)
[2017-01-30] MEDS ORDERED: GLUCOSE 40% GEL 15 GM TUBE PO PRN (09:15)
[2017-01-30] MEDS ORDERED: DEXTROSE 50% 50 ML SYR IV PRN (09:15)
[2017-01-30] MEDS ORDERED: GLUCAGON FOR INJ 1 MG VIAL SQ PRN (09:15)
[2017-01-30] MEDS ORDERED: GLUCOSE 10 TABS/TUBE PO PRN (09:15)
[2017-01-30] MEDS: INSULIN ASPART 100 UNITS/ML 3 ML PEN SC SCH ×4 (09:31→20:41)
[2017-01-30] MEDS: SODIUM CHLORIDE 0.9% 1000ML 1,000 ML IV SCH ×2 (09:37→22:15)
[2017-01-30 11:18] VITALS: BP 139/80; PULSE 71; O2SAT 99
--- NOTE | 2017-01-30 12:36 | Gastrointestinal Consultation ---
Gastrointestinal Consultation Date of Consultation: Jan 30, 2017 Attending Physician: DR Alfredo Garcia Consulting Physician: DR Gary Giles Reason for Consultation: crohns exacerbation History of Present Illness Patient is a 81 year old female with CC of weakness HPI Reviewed my [facility] EMR. Pt diagnosed with crohns disease in 08/2015 by colonoscopy. She was seen by me in the office until 10/2015 then wanted to follow with Dr Pretty Garcia for her crohns. She was seen again in my office . At that time she had been started on Prednisone by Dr Pretty Garcia but was not taking full dose of mesalamine because of cost. She was complaining of anal pain and had extensive anal fistulous disease. I was able to get her an appointment with Dr Alvarez the of colorectal surgery that day and she set up surgery at [facility]. Pt admitted -01/17/17. She had exam under anesthesia with seton placement of rectovaginal fistula on 01/10/17. CT a/P 01/10 showed sigmoid thickening, seton with some gas around it. GI at [facility] saw patient a a colonoscopy done 01/12/17 showed anal sticture, multiple punched out linear friable ulcers in rectosigmoid. The exam terminated at 35 cm secondary to anal stricture and severity of disease. Path of ulcers showed inflammation but neg for CMV. HSV neg also. Stool for Cx, Cdiff, vibrio, yersinia neg. GI recommended biologic so T spot done 01/15 negative. Labs 01/13 HIV neg, Hep B sAg , Ab, core neg, Hep A total neg. Hep C Ab net. First hep B imunization ordered. Pt tolerated diet so was discharged. She had f/u in my office 12/30/16 but no showed. Came in to ER pm 12/30 with weakness, not able to walk, difficulty seeing and hearing. D Dimer positive. CTA chest neg for PE. CT A/P liver cyst, diverticulosis, sigmoid thickening (? diverticulitis), diverticulosis, pulm nodule. LFTS normal. Pt states since DC getting weak, cannot walk. Trying to eat but not eating well. NO particular abd pain. No n/v. Cannot tell me if she is having diarrhea or not. Per nurse brown stool mixed with clots today. No f/c Past Medical/Surgical History Medical Problems: (1) Ambulatory dysfunction Status: Acute (2) Anxiety Status: Acute (3) Dehydration Status: Acute (4) Dehydration Status: Acute (5) Facial numbness Status: Acute (6) Lightheaded Status: Acute (7) Sinusitis Status: Acute (8) UTI (urinary tract infection) Status: Acute (9) UTI (urinary tract infection) Status: Acute (10) Weakness Status: Acute (11) Weakness Status: Acute Family History Heart disease Hypertension Social History Smoking Status: Never Smoker Alcohol Use: none Drug Use: none Marital Status: Housing Status: lives with family Occupation Status: retired Allergies Coded Allergies: No Known Allergies (Verified , 01/29/17) Current Medications Home Meds and Scripts Medications Dose Route/Sig Max Daily Dose Days Date Category Flagyl (Metronidazole) 500 Mg Tab 500 Mg PO TID 01/29/17 Reported Prevacid (Lansoprazole) 30 Mg Capcr 30 Mg PO QAM 01/29/17 Reported Prednisone 20 Mg Tab 20 Mg PO BID 01/03/17 Reported Mobic (Meloxicam) 15 Mg Tab 15 Mg PO QAM 07/25/16 Reported Levothyroxine Sodium 75 Mcg Tab 1 Tab PO QAM 90 07/25/16 Reported Lasix (Furosemide) 40 Mg Tab 40 Mg PO QAM 07/25/16 Reported Os-Karan 500 Plus D (Calcium/Vitamin D) Tab 1 Tab PO QAM 07/25/16 Reported Cozaar (Losartan Potassium) 25 Mg Tab 50 Mg PO QAM 07/25/16 Reported Aspirin Chewable (Aspirin) 81 Mg Chew 81 Mg PO QPM 07/25/16 Reported Propranolol Hcl 40 Mg Tab 1 Tab PO BID 07/25/16 Reported Novolin 70/30 (Insulin Human Isoph/Insulin Regular) Susp 48 SC QPM 08/20/15 Reported Novolin 70/30 (Insulin Human Isoph/Insulin Regular) Susp 70 Units SC QAM 08/20/15 Reported Review of Systems Respiratory: + shortness of breath Other 9 ROS negative. Physical Exam Date Time Temp Pulse Resp B/P (MAP) Pulse Ox O2 Delivery O2 Flow Rate FiO2 01/30/17 07:39 36.8 50 16 144/68 (93) 98 Room Air 01/30/17 07:20 Room Air 01/30/17 00:00 Room Air 01/29/17 23:12 36.4 68 18 147/70 (95) 98 Room Air 01/29/17 22:05 36.3 66 18 151/69 98 Room Air 01/29/17 20:35 66 151/69 (96) 98 Room Air 01/29/17 19:59 36.3 55 18 177/81 (113) 98 Room Air 01/29/17 18:54 60 158/70 97 01/29/17 18:48 51 16 01/29/17 18:33 47 14 01/29/17 18:18 67 25 01/29/17 18:03 66 22 01/29/17 17:48 57 18 01/29/17 17:45 90 20 131/69 98 Room Air 01/29/17 17:40 131/69 01/29/17 17:33 63 17 96 01/29/17 17:18 65 18 01/29/17 17:03 54 13 97 01/29/17 16:48 67 21 98 01/29/17 16:36 75 20 180/80 98 Room Air 01/29/17 16:33 66 21 01/29/17 16:18 63 16 01/29/17 16:04 62 01/29/17 16:03 64 17 01/29/17 15:18 59 22 95 01/29/17 15:16 180/80 01/29/17 15:03 56 20 01/29/17 14:50 47 18 180/80 96 Room Air 01/29/17 13:03 63 19 92 01/29/17 12:52 66 23 134/69 97 Room Air 01/29/17 12:48 57 21 96 01/29/17 12:33 60 24 97 01/29/17 12:30 134/69 01/29/17 12:18 70 30 01/29/17 12:03 71 17 General Appearance: WD/WN, no apparent distress Respiratory/Chest: lungs clear, no respiratory distress Cardiovascular: regular rate, rhythm, no edema, no murmur Abdomen: normal bowel sounds, non tender, soft, no organomegaly, + pertinent finding (Perianal area, Seton noted, not indurated, open wound noted with granulation tissue no obvious infection) Extremities: normal range of motion Neurologic/Psych: salt maker II-XII nml as tested, normal mood/affect, oriented x 3 Skin: normal color Laboratory Results Last 24 Hours Test 01/29/17 12:45 01/29/17 14:58 01/29/17 15:30 01/29/17 19:59 White Blood Count 7.63 K/uL Red Blood Count 4.13 M/uL Hemoglobin 10.4 g/dL Hematocrit 34.7 % Mean Corpuscular Volume 84.0 fL Mean Corpuscular Hemoglobin 25.2 pg Mean Corpuscular Hemoglobin Concent 30.0 g/dl Platelet Count 295 K/uL Mean Platelet Volume 9.4 fL Neutrophils (%) (Auto) 75.2 % Lymphocytes (%) (Auto) 16.4 % Monocytes (%) (Auto) 7.6 % Eosinophils (%) (Auto) 0.0 % Basophils (%) (Auto) 0.1 % Neutrophils # (Auto) 5.74 K/uL Lymphocytes # (Auto) 1.25 K/uL Monocytes # (Auto) 0.58 K/uL Eosinophils # (Auto) 0.00 K/uL Basophils # (Auto) 0.01 K/uL RDW Standard Deviation 59.2 fL RDW Coefficient of Variation 19.0 % Immature Granulocyte % (Auto) 0.7 % Immature Granulocyte # (Auto) 0.05 K/uL D-Dimer 2080 ug/L FEU Sodium Level 140 mmol/L Potassium Level 3.7 mmol/L Chloride Level 107 mmol/L Carbon Dioxide Level 26 mmol/L Anion Gap 7.0 mmol/L Blood Urea Nitrogen 27 mg/dl Creatinine 1.00 mg/dl Est Creatinine Clear Calc Drug Dose 41.4 ml/min Estimated GFR () 61.6 Estimated GFR (Non- 53.2 BUN/Creatinine Ratio 26.8 Random Glucose 92 mg/dl Calcium Level 8.9 mg/dl Total Bilirubin 0.5 mg/dl Aspartate Amino Transf (AST/SGOT) 15 U/L Alanine Aminotransferase (ALT/SGPT) 16 U/L Alkaline Phosphatase 60 U/L Troponin I < 0.015 ng/ml Pro-B-Type Natriuretic Peptide 498 pg/ml Total Protein 6.0 gm/dl Albumin 2.5 gm/dl Globulin 3.5 gm/dl Albumin/Globulin Ratio 0.7 Bedside Glucose 56 mg/dl 81 mg/dl 55 mg/dl Urine Color YELLOW Urine Appearance CLEAR Urine pH 7.0 Urine Specific [place] 1.018 Urine Protein NEG Urine Glucose (UA) NEG Urine Ketones NEG Urine Occult Blood NEG Urine Nitrite POS Urine Bilirubin NEG Urine Urobilinogen NEG Urine Leukocyte Esterase TRACE Urine WBC (Auto) 1-5 /hpf Urine RBC (Auto) 0-4 /hpf Urine Hyaline Casts (Auto) 1-5 /lpf Urine Epithelial Cells (Auto) 5-10 /lpf Urine Bacteria (Auto) 3+ Test 01/29/17 20:31 01/30/17 03:47 01/30/17 05:50 01/30/17 07:33 Bedside Glucose 140 mg/dl 268 mg/dl 253 mg/dl White Blood Count 5.16 K/uL Red Blood Count 3.92 M/uL Hemoglobin 10.0 g/dL Hematocrit 33.0 % Mean Corpuscular Volume 84.2 fL Mean Corpuscular Hemoglobin 25.5 pg Mean Corpuscular Hemoglobin Concent 30.3 g/dl Platelet Count 235 K/uL Mean Platelet Volume 8.7 fL Neutrophils (%) (Auto) 75.7 % Lymphocytes (%) (Auto) 15.9 % Monocytes (%) (Auto) 7.8 % Eosinophils (%) (Auto) 0.2 % Basophils (%) (Auto) 0.0 % Neutrophils # (Auto) 3.91 K/uL Lymphocytes # (Auto) 0.82 K/uL Monocytes # (Auto) 0.40 K/uL Eosinophils # (Auto) 0.01 K/uL Basophils # (Auto) 0.00 K/uL RDW Standard Deviation 60.9 fL RDW Coefficient of Variation 19.7 % Immature Granulocyte % (Auto) 0.4 % Immature Granulocyte # (Auto) 0.02 K/uL Sodium Level 139 mmol/L Potassium Level 5.0 mmol/L Chloride Level 105 mmol/L Carbon Dioxide Level 29 mmol/L Anion Gap 5.0 mmol/L Blood Urea Nitrogen 18 mg/dl Creatinine 0.94 mg/dl Est Creatinine Clear Calc Drug Dose 44.1 ml/min Estimated GFR () 66.4 Estimated GFR (Non- 57.3 BUN/Creatinine Ratio 19.6 Random Glucose 244 mg/dl Calcium Level 8.6 mg/dl Test 01/30/17 11:22 Bedside Glucose 289 mg/dl Impression Impression and Plan Crohns ileocolonic with severe active colonic disease by colonocopy at [facility] ---Need biologic agent such as Humira or Remicade. Call out to social work since she could not even afford mesalamine as outpt. Prednisone and cipro and flagyl ok for now. 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
[2017-01-30 15:48] VITALS: BP 143/86; PULSE 75; TEMP 36.8; O2SAT 96
[2017-01-30 16:00] VITALS: O2SAT 96
[2017-01-30 20:35] VITALS: BP 162/65; PULSE 75
[2017-01-30] MEDS: ASPIRIN 81 MG CHEW PO SCH (20:44)
--- NOTE | 2017-01-30 23:18 | Progress Note ---
Progress Note Date of Service Jan 30, 2017. Progress Note 81-year-old female admitted with multiple medical problems including severe Crohn's disease with acute exacerbation. She does have severe perianal inflammation. Also had evidence of fistulas. She has been evaluated at [facility].she is currently on prednisone 20 mg twice a day. Her medical problems also significant for type 2 diabetes mellitus, arterial hypertension, osteoarthritis. Patient was admitted. Her CT scan of the abdomen and pelvis showed significant inflammation in her colon. She has a history of right hemicolectomy because of large villous adenoma. She was continued on prednisone 20 mg twice a day and also started on ciprofloxacin and metronidazole intravenously. Yesterday her blood sugars were markedly decreased. She did require 50% dextrose solution. She also had evidence of urinary tract infection and urinary retention and she now has a Mckeon catheter in place which was inserted last night. This morning she seems to feel better. She is two-week period having difficulty with ambulation. She denied any headache or dizziness. No lightheadedness. No chest pain no shortness of breath. Not having any abdominal pain. No nausea no vomiting. She is having frequent loose bowel movements and she's having heaviness of rectal bleeding. Examination: GENERAL : Well developed. No acute distress. VITAL SIGNS ; Blood Pressure : 144/68 Pulse : 50 Temperature :36.8. Respirations 16. Oxygen saturation 98% on room SKIN : Warm and dry. No rash.Multiple ecchymotic areas HEENT :No mucosal abnormalities NECK : Supple. No adenopathy. No thyromegaly. No JVD. HEART: Regular heart sounds LUNGS: clear ABDOMEN: Soft nontender. No organomegaly. No masses. BACK: No tenderness EXTREMITIES: No edema clubbing or cyanosis. Osteoarthritic changes. Surgical scars. NEUROLOGICAL EXAMINATION: She is alert and oriented. No lateralized deficits. She does have generalized weakness. Laboratory Tests: WBC count 5160, hemoglobin 10, hematocrit 33%, platelet count 235,000. Sodium 139, potassium 5.0, chloride 105, CO2 29, BUN 18, creatinine 0.94, glucose 244, calcium 8.9. ASSESSMENT: 1. Severe Crohn's disease 2. Acute exacerbation 3. Perianal fistula 4. Type 2 diabetes mellitus 5. Arterial hypertension 6. Generalized weakness PLAN: 1. I changed her IV fluids to saline solution 2. Continue all her other medications 3. She was placed on a sliding scale coverage for her diabetes 4. Requested GI consultation from Dr. Gary Giles 5. Early today I spoke with Dr. Alvarez at [facility]. Would continue the treatment as planned. 6. Physical and occupational therapy 7. Giving the situation at home and her current condition and especially her weakness most likely she will need a rehabilitation stay.
[2017-01-30 23:50] VITALS: BP 154/62; PULSE 66; TEMP 36.8; O2SAT 97
[2017-01-31] MEDS: METRONIDAZOLE / NSS 500 MG in PREMIXED NSS 100 ML IV SCH ×3 (03:45→19:51)
[2017-01-31] MEDS: LEVOTHYROXINE 75 MCG TAB PO SCH (05:57)
[2017-01-31 06:48] LABS: COMPLETE YES; HEMATOCRIT 31.8 % (37-47); IG% 0.2 %; LYMPH % 18.6 %; LYMPH ABS # 0.95 K/uL (1.2-3.4); MEAN CELL VOLUME 84.4 fL (80-100); MEAN CORPUSCULAR HEMOGLOBIN 26.8 pg (25-34); MEAN CORPUSCULAR HGB CONC 31.8 g/dl (32-36); MEAN PLATELET VOLUME 9.4 fL (7.4-10.4); MONO % 6.4 %; NEUT % 74.8 %; PLATELET COUNT 228 K/uL (130-400); RED BLOOD COUNT 3.77 M/uL (4.2-5.4); WHITE BLOOD COUNT 5.12 K/uL (4.8-10.8)
[2017-01-31 07:09] VITALS: BP 162/76; PULSE 71; TEMP 36.6; O2SAT 96
[2017-01-31 07:24] LABS: CREATININE 0.91 mg/dl (0.60-1.20)
[2017-01-31 07:25] LABS: BUN/CREATININE RATIO 19.7 (10-20); POTASSIUM 4.6 mmol/L (3.5-5.1)
[2017-01-31] MEDS: CIPROFLOXACIN / D5W 400 MG in PREMIXED IN D5W 200 ML IV SCH ×2 (07:32→19:50)
[2017-01-31] MEDS: PROPRANOLOL HCL 10 MG TAB PO SCH ×2 (07:33→20:32)
[2017-01-31] MEDS: LOSARTAN POTASSIUM 50 MG TAB PO SCH (07:33)
[2017-01-31] MEDS: PANTOprazole SOD 40 MG TAB PO SCH (07:33)
[2017-01-31] MEDS: INSULIN ASPART 100 UNITS/ML 3 ML PEN SC SCH ×4 (07:51→21:33)
[2017-01-31 08:00] VITALS: O2SAT 96
[2017-01-31] MEDS ORDERED: TUBERCULIN SKIN TEST 5 TU in SYRINGE 0 ML INTRAD ONE (11:00)
[2017-01-31 11:05] VITALS: BP 130/77; PULSE 79; O2SAT 97
[2017-01-31] MEDS ORDERED: TUBERCULIN SKIN TEST 5 TU in SYRINGE 0 ML ID SCH (11:30)
[2017-01-31] MEDS: SODIUM CHLORIDE 0.9% 1000ML 1,000 ML IV SCH (11:46)
--- NOTE | 2017-01-31 15:21 | Gastroenterology Progress Note ---
Progress Note Date of Service: Jan 31, 2017 Subjective Pt evaluation today including: conversation w/ patient, chart review, lab review, review of studies Medications Current Inpatient Medications Medications (Trade) Dose Ordered Sig/Maura Route Start Time Stop Time Status Last Admin Dose Admin Ioversol (Optiray 320) 116 ml UD PRN IV 01/29/17 16:00 02/02/17 15:59 Acetaminophen (Tylenol Tab) 650 mg Q4H PRN PO 01/29/17 17:00 02/28/17 16:59 Ondansetron HCl (Zofran Inj) 4 mg Q6H PRN IV 01/29/17 17:00 02/28/17 16:59 Aspirin (Aspirin Chew) 81 mg QPM PO 01/29/17 21:00 02/28/17 20:59 01/30/17 20:44 81 MG Levothyroxine Sodium (Synthroid Tab) 75 mcg DAILYBB PO 01/30/17 06:30 03/01/17 06:29 01/31/17 05:57 75 MCG Losartan Potassium (coZAAR TAB) 50 mg QAM PO 01/30/17 09:00 03/01/17 08:59 01/31/17 07:33 50 MG Prednisone (PredniSONE TAB) 20 mg BID PO 01/29/17 21:00 02/28/17 20:59 01/31/17 07:33 20 MG Propranolol HCl (Inderal Tab) 40 mg BID PO 01/29/17 21:00 02/28/17 20:59 01/31/17 07:33 40 MG Pantoprazole Sodium (Protonix Tab) 40 mg QAM PO 01/30/17 09:00 03/01/17 08:59 01/31/17 07:33 40 MG Ciprofloxacin/ Dextrose 400 mg/ Prmx 200 ml @ 100 mls/hr Q12H IV 01/29/17 20:00 02/08/17 19:59 01/31/17 07:32 100 MLS/HR Metronidazole 500 mg/Prmx 100 ml @ 100 mls/hr Q8H IV 01/29/17 20:00 02/08/17 19:59 01/31/17 11:47 100 MLS/HR Sodium Chloride 1,000 ml @ 75 mls/hr [id number] IV 01/30/17 09:15 03/01/17 09:14 01/31/17 11:46 75 MLS/HR Insulin Aspart (novoLOG ASPART) SLIDING SCALE G... ACHS SC 01/30/17 11:00 03/01/17 10:59 01/31/17 11:59 14 UNITS Glucose (Glucose 40% Gel) 15-30 GRAMS 15 GRAMS... UD PRN PO 01/30/17 09:15 03/01/17 09:14 Glucose (Glucose Chew Tab) 4-8 Tablets 4 Tabl... UD PRN PO 01/30/17 09:15 03/01/17 09:14 Dextrose (Dextrose 50% 50ML Syringe) 25-50ML OF 50% DW IV FOR... UD PRN IV 01/30/17 09:15 03/01/17 09:14 Glucagon (Glucagon Inj) 1 mg UD PRN SQ 01/30/17 09:15 03/01/17 09:14 Miscellaneous (Ppd Check) 1 ea Q48H N/A 02/02/17 11:30 02/02/17 11:31 Insulin Glargine (Lantus Solostar Pen) 10 units BID SC 01/31/17 21:00 03/02/17 20:59 Objective Vital Signs Date Time Temp Pulse Resp B/P (MAP) Pulse Ox O2 Delivery O2 Flow Rate FiO2 01/31/17 11:05 79 97 01/31/17 08:00 96 Room Air 01/31/17 07:09 36.6 71 18 162/76 (104) 96 Room Air 01/31/17 00:00 Room Air 01/30/17 23:50 36.8 66 20 154/62 (92) 97 Room Air 01/30/17 20:35 75 162/65 (97) 01/30/17 16:00 96 Room Air 01/30/17 15:48 36.8 75 18 143/86 (105) 96 Room Air Physical Exam General Appearance: + obese Laboratory Results Last 24 Hours Test 01/30/17 16:29 01/30/17 19:44 01/31/17 06:10 01/31/17 07:24 Bedside Glucose 229 mg/dl 316 mg/dl 215 mg/dl White Blood Count 5.12 K/uL Red Blood Count 3.77 M/uL Hemoglobin 10.1 g/dL Hematocrit 31.8 % Mean Corpuscular Volume 84.4 fL Mean Corpuscular Hemoglobin 26.8 pg Mean Corpuscular Hemoglobin Concent 31.8 g/dl Platelet Count 228 K/uL Mean Platelet Volume 9.4 fL Neutrophils (%) (Auto) 74.8 % Lymphocytes (%) (Auto) 18.6 % Monocytes (%) (Auto) 6.4 % Eosinophils (%) (Auto) 0.0 % Basophils (%) (Auto) 0.0 % Neutrophils # (Auto) 3.83 K/uL Lymphocytes # (Auto) 0.95 K/uL Monocytes # (Auto) 0.33 K/uL Eosinophils # (Auto) 0.00 K/uL Basophils # (Auto) 0.00 K/uL RDW Standard Deviation 61.0 fL RDW Coefficient of Variation 19.7 % Immature Granulocyte % (Auto) 0.2 % Immature Granulocyte # (Auto) 0.01 K/uL Sodium Level 141 mmol/L Potassium Level 4.6 mmol/L Chloride Level 110 mmol/L Carbon Dioxide Level 25 mmol/L Anion Gap 6.0 mmol/L Blood Urea Nitrogen 18 mg/dl Creatinine 0.91 mg/dl Est Creatinine Clear Calc Drug Dose 45.5 ml/min Estimated GFR () 69.1 Estimated GFR (Non- 59.6 BUN/Creatinine Ratio 19.7 Random Glucose 197 mg/dl Calcium Level 9.0 mg/dl Test 01/31/17 11:16 01/31/17 15:07 Bedside Glucose 291 mg/dl Assessment and Plan The pt has active ileocolonic and perianal Crohn's disease with an anal seton in place. She is a candidate for a biologic and Dr. Pretty Garcia has recommended Remicade for improved compliance. Her PPD has been placed and I ordered HBVsAg. Once these are found to be negative, we can apply for authorization and begin the infusions. I would recommend 5mg / kg at 0,2, and 6 weeks followed by every 8 weeks.
[2017-01-31 16:00] VITALS: O2SAT 97
[2017-01-31 16:16] VITALS: BP 135/67; PULSE 78; TEMP 36.4; O2SAT 99
--- NOTE | 2017-01-31 18:12 | Progress Note ---
Progress Note Date of Service Jan 31, 2017. Progress Note 81-year-old female admitted with multiple medical problems including: Severe Crohn's disease with severe acute exacerbation Status post placement of anal seton at Type 2 diabetes mellitus Arterial hypertension Osteoarthritis Suspected diverticulitis Urinary retention Urinary tract infection Patient was admitted. Cultures were done. She was started on IV ciprofloxacin and metronidazole. She is also on prednisone 20 mg twice a day. Patient was seen in GI consultation by Dr. Giles. He is planning on starting Remicade or Humira. Both medications need to be preapproved by her insurance company. Case management cities working on that. Given the choice between the 2 medications and because of compliance issue I thought that Remicade would be a better choice for her. Her condition is improved. Her appetite is improved but her oral intake still poor. She is receiving physical and occupational therapies. She was able to ambulate with her walker. But she needs somebody to be with her. Unable to do it independently. She remains afebrile. No headache no dizziness. No lightheadedness. No chest pain no shortness of breath. No abdominal pain. No nausea no vomiting. She did have urinary retention and had a Mckeon catheter placed. EXAMINATION: Well-developed in no distress and Vital signs blood pressure 162/76, pulse 71, respiration 18, temperature 36.6, oxygen saturation 96% on room air Skin is warm and dry. No rash. Ecchymotic areas HEENT no mucosal abnormalities. Neck is supple without adenopathy or thyromegaly. No JVD. Heart regular heart sounds no murmur rub or gallop Lungs are clear. Abdomen is soft nontender without organomegaly or masses. Back no spinal tenderness. Extremities no edema clubbing or cyanosis. Osteoarthritic changes. Surgical scars. LABORATORY TESTS: WBC count 5120 hemoglobin 10.1 hematocrit 31.8 platelet count 228,000 Sodium 141 potassium 4.6 chloride 110 CO2 25 BU and 18 creatinine 0.91. Glucose 197 calcium 9.0 ASSESSMENT: Crohn's disease. Severe. Severe acute exacerbation. Rectal bleeding secondary to her Crohn's disease Status post placement of anal seton at Type 2 diabetes mellitus Diverticulitis Urinary retention Urinary tract infection PLAN: Continue IV antibiotic and IV fluid Remove Mckeon catheter. We'll monitor for any urinary retention Added Lantus insulin to her regimen today Continue GI follow-up Working on getting her Remicade approved Continue therapies I anticipate patient need to be kept in a facility until she has a reasonable recovery. All information was sent to [facility] today.
[2017-01-31] MEDS: ASPIRIN 81 MG CHEW PO SCH (21:25)
[2017-01-31] MEDS: INSULIN GLARGINE SOLOSTAR 100 UNITS/ML 3 ML PEN SC SCH (21:33)
[2017-02-01] VITALS (9 sets, daily range): BP systolic 145–170; BP diastolic 69–83; PULSE 53–82; TEMP 36.4–36.9; O2SAT 96–99
[2017-02-01] MEDS: SODIUM CHLORIDE 0.9% 1000ML 1,000 ML IV SCH ×2 (01:14→14:47)
[2017-02-01] MEDS: METRONIDAZOLE / NSS 500 MG in PREMIXED NSS 100 ML IV SCH ×3 (04:27→21:47)
[2017-02-01] MEDS: LEVOTHYROXINE 75 MCG TAB PO SCH (06:01)
[2017-02-01 07:05] LABS: EOS % 0.2 %; HEMATOCRIT 29.5 % (37-47); IG% 0.2 %; LYMPH ABS # 0.86 K/uL (1.2-3.4); MEAN CELL VOLUME 84.8 fL (80-100); MEAN CORPUSCULAR HEMOGLOBIN 25.3 pg (25-34); MEAN CORPUSCULAR HGB CONC 29.8 g/dl (32-36); MEAN PLATELET VOLUME 9.2 fL (7.4-10.4); MONO % 5.6 %; PLATELET COUNT 211 K/uL (130-400); RED BLOOD COUNT 3.48 M/uL (4.2-5.4)
[2017-02-01 07:31] LABS: ANISOCYTOSIS PRESENT; COMPLETE YES
[2017-02-01 07:40] LABS: CALCIUM 8.4 mg/dl (8.5-10.1); CREATININE 0.79 mg/dl (0.60-1.20); POTASSIUM 4.5 mmol/L (3.5-5.1)
[2017-02-01] MEDS: PANTOprazole SOD 40 MG TAB PO SCH (08:07)
[2017-02-01] MEDS: CIPROFLOXACIN / D5W 400 MG in PREMIXED IN D5W 200 ML IV SCH ×2 (08:07→21:47)
[2017-02-01] MEDS: LOSARTAN POTASSIUM 50 MG TAB PO SCH (08:07)
[2017-02-01] MEDS: INSULIN ASPART 100 UNITS/ML 3 ML PEN SC SCH ×4 (08:11→20:54)
[2017-02-01] MEDS: INSULIN GLARGINE SOLOSTAR 100 UNITS/ML 3 ML PEN SC SCH ×2 (08:12→20:54)
[2017-02-01] MEDS: PROPRANOLOL HCL 10 MG TAB PO SCH ×2 (08:54→20:52)
--- NOTE | 2017-02-01 15:23 | Gastroenterology Progress Note ---
Progress Note Date of Service: Feb 01, 2017 Subjective Pt evaluation today including: conversation w/ patient Patient with recent diagnosis with Crohn's disease with plans to start Remicade as soon as insurance approves. Hepatitis B surface antigen is negative and TB testing was negative at [facility]. Patient has loose stools with occasional blood with wiping. Appetite is fair and is tolerating food. Review of systems otherwise noncontributory based on 14 point exam except for mentioned above medications and allergies were reviewed and reconciled that are present in the medical record. Medications Current Inpatient Medications Medications (Trade) Dose Ordered Sig/Maura Route Start Time Stop Time Status Last Admin Dose Admin Ioversol (Optiray 320) 116 ml UD PRN IV 01/29/17 16:00 02/02/17 15:59 Acetaminophen (Tylenol Tab) 650 mg Q4H PRN PO 01/29/17 17:00 02/28/17 16:59 Ondansetron HCl (Zofran Inj) 4 mg Q6H PRN IV 01/29/17 17:00 02/28/17 16:59 Aspirin (Aspirin Chew) 81 mg QPM PO 01/29/17 21:00 02/28/17 20:59 01/31/17 21:25 81 MG Levothyroxine Sodium (Synthroid Tab) 75 mcg DAILYBB PO 01/30/17 06:30 03/01/17 06:29 02/01/17 06:01 75 MCG Losartan Potassium (coZAAR TAB) 50 mg QAM PO 01/30/17 09:00 03/01/17 08:59 02/01/17 08:07 50 MG Prednisone (PredniSONE TAB) 20 mg BID PO 01/29/17 21:00 02/28/17 20:59 02/01/17 08:07 20 MG Propranolol HCl (Inderal Tab) 40 mg BID PO 01/29/17 21:00 02/28/17 20:59 02/01/17 08:54 40 MG Pantoprazole Sodium (Protonix Tab) 40 mg QAM PO 01/30/17 09:00 03/01/17 08:59 02/01/17 08:07 40 MG Ciprofloxacin/ Dextrose 400 mg/ Prmx 200 ml @ 100 mls/hr Q12H IV 01/29/17 20:00 02/08/17 19:59 02/01/17 08:07 100 MLS/HR Metronidazole 500 mg/Prmx 100 ml @ 100 mls/hr Q8H IV 01/29/17 20:00 02/08/17 19:59 02/01/17 12:07 100 MLS/HR Sodium Chloride 1,000 ml @ 75 mls/hr [id number] IV 01/30/17 09:15 03/01/17 09:14 02/01/17 01:14 75 MLS/HR Insulin Aspart (novoLOG ASPART) SLIDING SCALE G... ACHS SC 01/30/17 11:00 03/01/17 10:59 02/01/17 12:18 14 UNITS Glucose (Glucose 40% Gel) 15-30 GRAMS 15 GRAMS... UD PRN PO 01/30/17 09:15 03/01/17 09:14 Glucose (Glucose Chew Tab) 4-8 Tablets 4 Tabl... UD PRN PO 01/30/17 09:15 03/01/17 09:14 Dextrose (Dextrose 50% 50ML Syringe) 25-50ML OF 50% DW IV FOR... UD PRN IV 01/30/17 09:15 03/01/17 09:14 Glucagon (Glucagon Inj) 1 mg UD PRN SQ 01/30/17 09:15 03/01/17 09:14 Miscellaneous (Ppd Check) 1 ea Q48H N/A 02/02/17 11:30 02/02/17 11:31 Insulin Glargine (Lantus Solostar Pen) 10 units BID SC 01/31/17 21:00 03/02/17 20:59 02/01/17 08:12 10 UNITS Objective Vital Signs Date Time Temp Pulse Resp B/P (MAP) Pulse Ox O2 Delivery O2 Flow Rate FiO2 02/01/17 08:00 Room Air 02/01/17 07:07 36.8 82 18 147/83 (104) 96 Room Air 02/01/17 00:28 36.7 53 18 158/80 (106) 96 Room Air 02/01/17 00:05 97 Room Air 01/31/17 16:16 36.4 78 20 135/67 (89) 99 Room Air 01/31/17 16:00 97 Room Air Physical Exam General Appearance: WD/WN, no apparent distress ENT: hearing grossly normal Neck: supple, no adenopathy Respiratory/Chest: chest non-tender, normal breath sounds Cardiovascular: regular rate, rhythm, no edema Abdomen: normal bowel sounds, soft, no organomegaly, no pulsatile mass Physical exam today patient is awake alert and oriented 3 sclera anicteric. Conjunctiva moist. Oral mucosa moist. Lungs are clear to auscultation without wheezes. The heart is normal S1-S2. The abdomen is soft obese nontender nondistended with good bowel sounds extremities without clubbing cyanosis or edema. Rectal exam is deferred at this time. Neurologic exam is nonfocal. Skin intact. Laboratory Results Last 24 Hours Test 01/31/17 15:28 01/31/17 15:38 01/31/17 16:08 01/31/17 20:02 Hepatitis B Surface Antigen NEG Bedside Glucose 298 mg/dl 329 mg/dl Test 02/01/17 06:33 02/01/17 07:32 02/01/17 11:10 White Blood Count 4.10 K/uL Red Blood Count 3.48 M/uL Hemoglobin 8.8 g/dL Hematocrit 29.5 % Mean Corpuscular Volume 84.8 fL Mean Corpuscular Hemoglobin 25.3 pg Mean Corpuscular Hemoglobin Concent 29.8 g/dl Platelet Count 211 K/uL Mean Platelet Volume 9.2 fL Neutrophils (%) (Auto) 73.0 % Lymphocytes (%) (Auto) 21.0 % Monocytes (%) (Auto) 5.6 % Eosinophils (%) (Auto) 0.2 % Basophils (%) (Auto) 0.0 % Neutrophils # (Auto) 2.99 K/uL Lymphocytes # (Auto) 0.86 K/uL Monocytes # (Auto) 0.23 K/uL Eosinophils # (Auto) 0.01 K/uL Basophils # (Auto) 0.00 K/uL RDW Standard Deviation 61.5 fL RDW Coefficient of Variation 19.5 % Immature Granulocyte % (Auto) 0.2 % Immature Granulocyte # (Auto) 0.01 K/uL Anisocytosis PRESENT Sodium Level 143 mmol/L Potassium Level 4.5 mmol/L Chloride Level 113 mmol/L Carbon Dioxide Level 23 mmol/L Anion Gap 7.0 mmol/L Blood Urea Nitrogen 21 mg/dl Creatinine 0.79 mg/dl Est Creatinine Clear Calc Drug Dose 52.5 ml/min Estimated GFR () 81.9 Estimated GFR (Non- 70.7 BUN/Creatinine Ratio 26.0 Random Glucose 139 mg/dl Calcium Level 8.4 mg/dl Bedside Glucose 143 mg/dl 281 mg/dl Assessment and Plan Laboratory studies were reviewed white count is 4.1 with a hemoglobin down to 8.8. Vital signs were reviewed and are stable. Impression and plan: No evidence for chronic hepatitis B or TB latency infection. We'll plan for Remicade infusion as first induction dose tomorrow. Apparently Inflecta, a bio similar to Remicade is not available and therefore will begin Remicade therapy at 5 mg/kg tomorrow then 2 weeks later in 4 weeks after that. Some of this may be completed during her rehabilitation stay once this is achieved. Her maintenance dosing will be 5 mg/kg every 8 weeks. Pre-infusion protocol should be followed. All questions answered for the patient. Case also discussed with Dr. Giles who coordinated discussions with Remicade versus bio similar agent.
[2017-02-01] MEDS ORDERED: INFLIXIMAB IV ONE ×2 (16:30)
[2017-02-01] MEDS ORDERED: SOD CHL IV ONE ×2 (16:30)
[2017-02-01] MEDS ORDERED: POLYOLEFIN IV ONE ×2 (16:30)
[2017-02-01] MEDS ORDERED: 1.2 MICRON FILTER 1 EA IV SCH (18:00)
[2017-02-01] MEDS ORDERED: INFLIXIMAB IV SCH ×4 (18:00)
[2017-02-01] MEDS ORDERED: PRIMARY PLUMSET 1 EA IV SCH (18:00)
[2017-02-01] MEDS ORDERED: POLYOLEFIN IV SCH ×4 (18:00)
[2017-02-01] MEDS ORDERED: SOD CHL IV SCH ×4 (18:00)
[2017-02-01] MEDS: ASPIRIN 81 MG CHEW PO SCH (21:03)
--- NOTE | 2017-02-01 21:38 | Progress Note ---
Progress Note Date of Service Feb 01, 2017. Progress Note 82-year-old female with multiple medical problems including: Severe Crohn's disease Severe exacerbation Perianal fistula Diverticulitis Type 2 diabetes mellitus Arterial hypertension Osteoarthritis Mental status changes Patient was admitted. She was started on IV ciprofloxacin and metronidazole. She is on chronic prednisone therapy with prednisone 20 mg twice a day.physical and occupational therapies were ordered. GI consultation was ordered. Patient was seen by Dr. Giles. Patient has a seton. She denied any headache or dizziness. No problems with her vision. No ear ache sore throat or neck pain. No chest pain no shortness of breath. No abdominal pain. No nausea no vomiting. She is having multiple bowel movements. Whenever she stands up she does have incontinence. She had urinary retention and she does have a Mckeon catheter in place. Neck patent was made to remove the catheter without success. I suspect she is having problems voiding because of the degree of inflammation in the perineal area. Examination: GENERAL : Well developed. Well nourished. No acute distress. VITAL SIGNS ; Blood Pressure : 145/70, Pulse : 67, Temperature :36.5, respiration 20, oxygen saturation 97% on room a SKIN : Warm and dry. No rash. HEENT :No mucosal abnormalities NECK : Supple. No adenopathy. No thyromegaly. No JVD. HEART: Regular heart sounds. No murmur rub or gallop. LUNGS : clear ABDOMEN: Soft nontender. No organomegaly or masses. EXTREMITIES: No edema clubbing or cyanosis NEUROLOGICAL EXAM:she is forgetful mood. There is no evidence of any deficit. LABORATORY TESTS: WBC count wound 4100, hemoglobin 8.8, hematocrit 29.5, platelet count 211,000. Sodium 143, potassium 4.5, CO2 23, chloride 113, BUN 21, creatinine 0.79, glucose 139, calcium 8.4. Hepatitis B surface antigen was negative. PPD was applied and if it is negative. ASSESSMENT: Severe Crohn's disease with severe exacerbation Perianal fistula Anemia Urinary tract infection secondary to enterococcus Faecium. Urinary retention Rectal bleeding Type 2 diabetes mellitus arterial hypertension PLAN: Continue her IV medications Continue therapies I spoke with Dr. Giles today. Planning to start Remicade Maintain Mckeon catheter Discharge planning in progress. Working on [facility]
[2017-02-02] MEDS: SODIUM CHLORIDE 0.9% 1000ML 1,000 ML IV SCH ×2 (03:22→17:08)
[2017-02-02] MEDS: METRONIDAZOLE / NSS 500 MG in PREMIXED NSS 100 ML IV SCH ×3 (05:21→22:21)
[2017-02-02] MEDS: LEVOTHYROXINE 75 MCG TAB PO SCH (05:21)
[2017-02-02 07:11] VITALS: BP 153/69; PULSE 61; TEMP 36.5; O2SAT 97
[2017-02-02] MEDS: LOSARTAN POTASSIUM 50 MG TAB PO SCH (07:48)
[2017-02-02] MEDS: PANTOprazole SOD 40 MG TAB PO SCH (07:48)
[2017-02-02] MEDS: CIPROFLOXACIN / D5W 400 MG in PREMIXED IN D5W 200 ML IV SCH ×2 (07:48→20:20)
[2017-02-02] MEDS: PROPRANOLOL HCL 10 MG TAB PO SCH ×2 (07:48→20:21)
[2017-02-02] MEDS: INSULIN ASPART 100 UNITS/ML 3 ML PEN SC SCH ×4 (07:52→20:50)
[2017-02-02] MEDS: INSULIN GLARGINE SOLOSTAR 100 UNITS/ML 3 ML PEN SC SCH ×2 (07:53→20:51)
--- NOTE | 2017-02-02 09:02 | Gastroenterology Progress Note ---
Progress Note Date of Service: Feb 02, 2017 Subjective The patient events since the last GI assessment were reviewed. The patient received her first dose of Remicade last evening and tolerated this well. She denied any rashes fevers chills shortness of breath and was completed without difficulty. She continues to have loose stools but overall feels a little better today. Her appetite is good and is tolerating her morning meal. Review of Systems Constitutional: + see HPI, No fever, No chills ENT: No sore throat Respiratory: No cough, No sputum, No wheezing, No shortness of breath Cardiac: No chest pain Abdomen: + diarrhea, No pain, No nausea, No dysphagia, No odynophagia Musculoskeletal: No joint pain Female : No dysuria Neuro: No memory loss, No weakness Psych: No see HPI Heme: No abnormal bleeding/bruising Endo: No fatigue Skin: No rash Medications Current Inpatient Medications Medications (Trade) Dose Ordered Sig/Maura Route Start Time Stop Time Status Last Admin Dose Admin Ioversol (Optiray 320) 116 ml UD PRN IV 01/29/17 16:00 02/02/17 15:59 Acetaminophen (Tylenol Tab) 650 mg Q4H PRN PO 01/29/17 17:00 02/28/17 16:59 Ondansetron HCl (Zofran Inj) 4 mg Q6H PRN IV 01/29/17 17:00 02/28/17 16:59 Aspirin (Aspirin Chew) 81 mg QPM PO 01/29/17 21:00 02/28/17 20:59 02/01/17 21:03 81 MG Levothyroxine Sodium (Synthroid Tab) 75 mcg DAILYBB PO 01/30/17 06:30 03/01/17 06:29 02/02/17 05:21 75 MCG Losartan Potassium (coZAAR TAB) 50 mg QAM PO 01/30/17 09:00 03/01/17 08:59 02/02/17 07:48 50 MG Prednisone (PredniSONE TAB) 20 mg BID PO 01/29/17 21:00 02/28/17 20:59 02/02/17 07:48 20 MG Propranolol HCl (Inderal Tab) 40 mg BID PO 01/29/17 21:00 02/28/17 20:59 02/02/17 07:48 40 MG Pantoprazole Sodium (Protonix Tab) 40 mg QAM PO 01/30/17 09:00 03/01/17 08:59 02/02/17 07:48 40 MG Ciprofloxacin/ Dextrose 400 mg/ Prmx 200 ml @ 100 mls/hr Q12H IV 01/29/17 20:00 02/08/17 19:59 02/02/17 07:48 100 MLS/HR Metronidazole 500 mg/Prmx 100 ml @ 100 mls/hr Q8H IV 01/29/17 20:00 02/08/17 19:59 02/02/17 05:21 100 MLS/HR Sodium Chloride 1,000 ml @ 75 mls/hr [id number] IV 01/30/17 09:15 03/01/17 09:14 02/02/17 03:22 75 MLS/HR Insulin Aspart (novoLOG ASPART) SLIDING SCALE G... ACHS SC 01/30/17 11:00 03/01/17 10:59 02/02/17 07:52 13 UNITS Glucose (Glucose 40% Gel) 15-30 GRAMS 15 GRAMS... UD PRN PO 01/30/17 09:15 03/01/17 09:14 Glucose (Glucose Chew Tab) 4-8 Tablets 4 Tabl... UD PRN PO 01/30/17 09:15 03/01/17 09:14 Dextrose (Dextrose 50% 50ML Syringe) 25-50ML OF 50% DW IV FOR... UD PRN IV 01/30/17 09:15 03/01/17 09:14 Glucagon (Glucagon Inj) 1 mg UD PRN SQ 01/30/17 09:15 03/01/17 09:14 Miscellaneous (Ppd Check) 1 ea Q48H N/A 02/02/17 11:30 02/02/17 11:31 Insulin Glargine (Lantus Solostar Pen) 10 units BID SC 01/31/17 21:00 03/02/17 20:59 02/02/17 07:53 10 UNITS Objective Vital Signs Date Time Temp Pulse Resp B/P (MAP) Pulse Ox O2 Delivery O2 Flow Rate FiO2 02/02/17 07:11 36.5 61 20 153/69 (97) 97 Room Air 02/02/17 00:00 Room Air 02/01/17 23:05 36.6 65 18 158/73 (101) 97 Room Air 02/01/17 21:00 36.4 68 18 170/73 (105) 99 Room Air 02/01/17 20:00 Room Air 02/01/17 20:00 36.8 64 18 151/74 (99) 97 Room Air 02/01/17 19:30 36.9 59 20 156/77 (103) 97 Room Air 02/01/17 19:07 36.9 75 16 164/69 (100) 98 Room Air 02/01/17 16:00 Room Air 02/01/17 14:43 36.5 67 20 145/75 (98) 97 Room Air Physical Exam General Appearance: no apparent distress Eyes: normal inspection ENT: hearing grossly normal Neck: supple Respiratory/Chest: lungs clear, no respiratory distress Cardiovascular: regular rate, rhythm Abdomen: normal bowel sounds, non tender, soft Extremities: + pedal edema Neurologic/Psych: no motor/sensory deficits, normal mood/affect, oriented x 3 Skin: warm/dry, no rash Vital signs are above stable. Patient is awake alert and oriented 3 oral mucosa moist heart normal S1-S2, lungs clear to auscultation, abdomen soft, nontender nondistended. Extremities with trace edema bilaterally a rectal exam is deferred sclera anicteric. Laboratory Results Last 24 Hours Test 02/01/17 11:10 02/01/17 16:11 02/01/17 20:02 02/02/17 07:32 Bedside Glucose 281 mg/dl 249 mg/dl 299 mg/dl 268 mg/dl Assessment and Plan Impression and plan: No evidence for chronic hepatitis B or TB latency infection. Remicade infusion as first induction last evening. Apparently Inflecta, a bio similar to Remicade is not available and therefore will begin Remicade then 2 weeks later in 4 weeks after that. Some of this may be completed during her rehabilitation stay once this is achieved. Her maintenance dosing will be 5 mg/kg every 8 weeks. Pre-infusion protocol should be followed. All questions answered for the patient. Case also discussed with Dr. Giles who coordinated discussions with Remicade versus bio similar agent. We'll plan to continue Remicade infusion per induction protocol and subsequent maintenance protocol. Monitoring stool output stool consistency and evidence of resolution of blood. Follow labs and electrolytes. Patient may benefit from Benadryl pretreatment if there are any untoward effects following subsequent Remicade infusions. Dr. Dong will be covering the surface us weekend. Thank you for allowing us to participate in this pleasant lady care
[2017-02-02] MEDS ORDERED: INSULIN GLARGINE SOLOSTAR 100 UNITS/ML 3 ML PEN SC ONE (09:15)
[2017-02-02 09:29] LABS: HEMATOCRIT 32.3 % (37-47); IG% 0.6 %; LYMPH % 27.4 %; LYMPH ABS # 1.45 K/uL (1.2-3.4); MEAN CORPUSCULAR HEMOGLOBIN 25.5 pg (25-34); MEAN PLATELET VOLUME 9.9 fL (7.4-10.4); MONO % 6.4 %; NEUT % 65.6 %; PLATELET COUNT 187 K/uL (130-400)
[2017-02-02 09:49] LABS: BUN/CREATININE RATIO 20.8 (10-20); CALCIUM 8.9 mg/dl (8.5-10.1); CREATININE 1.1 mg/dl (0.60-1.20); MAGNESIUM 1.9 mg/dl (1.8-2.4); POTASSIUM 4.5 mmol/L (3.5-5.1)
[2017-02-02 09:52] LABS: ALB/GLOB RATIO 0.7 (0.9-2)
[2017-02-02 10:04] LABS: BETA-HYDROXYBUTYRATE 1.17 mg/dL (0.2-2.81)
[2017-02-02 10:15] LABS: ANISOCYTOSIS PRESENT; COMPLETE YES
[2017-02-02 10:48] LABS: QUANTIFERON NIL 0.03 IU/ML
[2017-02-02] MEDS ORDERED: PPD CHECK SCH (11:30)
[2017-02-02 14:29] VITALS: BP 152/66; PULSE 63; TEMP 36.7; O2SAT 97
[2017-02-02] MEDS ORDERED: TAMSULOSIN HCL 0.4 MG CAP PO ONE (20:30)
[2017-02-02] MEDS ORDERED: INSULIN GLARGINE SOLOSTAR 100 UNITS/ML 3 ML PEN SC SCH (21:00)
[2017-02-02] MEDS: ASPIRIN 81 MG CHEW PO SCH (21:05)
--- NOTE | 2017-02-02 22:05 | Progress Note ---
Progress Note Date of Service Feb 02, 2017. Progress Note 81-year-old female with severe Crohn's disease iliac to the exacerbation her. She also has perianal and anorectal fistula. She has been evaluated by Dr. Giles in gastroenterology. Patient was also admitted to for treatment of her fistula. She does have a seton drain in place. She has severe inflammation. She also had multiple episodes of urinary retention and she does have a Mckeon catheter in place. At this time she is still on IV ciprofloxacin and metronidazole. She is still on oral prednisone 20 mg twice a day. Yesterday she received her first dose of Remicade. It was well tolerated. No apparent side effects. Her condition has improved. She remained afebrile a repeat she does still have problems with confusion and difficulty remembering. She denied any headache or dizziness. No chest pain no shortness of breath. No abdominal pain. Her appetite is improving. No nausea no vomiting. Still having rectal bleeding. She has a Mckeon catheter in place. She denied any pain in her back or extremities. EXAMINATION: GENERAL : Well developed. Well nourished. No acute distress. VITAL SIGNS ; Blood Pressure :153/69 HEENT Pulse :63 Temperature :36.5. Respiration rate 20, oxygen saturations are 97% on room air SKIN : Warm and dry. No rash. HEENT :She wears glasses. No mucosal abnormalities. NECK : Supple. No adenopathy. No thyromegaly. No JVD. Normal carotid pulses. HEART: Regular heart sounds LUNGS: All clear ABDOMEN: Soft nontender. EXTREMITIES: No edema clubbing or cyanosis TODAY'S LABORATORY TEST'S: WBC count 5300, hemoglobin 9.7, hematocrit 32.3, platelet count 187,000. Sodium 138, potassium 4.5, chloride 111, CO2 18, BUN 23, and creatinine 1.1, glucose 322, estimated 0.9, magnesium 1.9, total bilirubin 0.3, AST 11, ALT 16, alkaline phosphatase 59, total protein 5.5, albumin 2.2 ASSESSMENT: Crohn's disease Acute exacerbation of Crohn's disease Perianal fistula Type 2 diabetes mellitus Ocular hypertension Suspected diverticulitis Urinary retention Urinary tract infection PLAN: Continue IV antibiotics Discontinue IV fluid Increase insulin dose Continue with therapy Started on Flomax Will attempt to remove her Mckeon catheter in the morning She has been accepted at [facility]. Will complete her course of IV antibiotics. Eventually changed over to oral antibiotic. As noted she was started on Remicade and seems to be tolerated.
[2017-02-02 23:09] VITALS: BP 116/75; PULSE 54; TEMP 36.5; O2SAT 98
[2017-02-03] MEDS: METRONIDAZOLE / NSS 500 MG in PREMIXED NSS 100 ML IV SCH ×3 (05:16→21:32)
[2017-02-03] MEDS: LEVOTHYROXINE 75 MCG TAB PO SCH (05:17)
[2017-02-03 06:39] LABS: COMPLETE YES; IG% 0.7 %; LYMPH % 26.3 %; LYMPH ABS # 1.14 K/uL (1.2-3.4); MEAN CELL VOLUME 84.7 fL (80-100); MEAN CORPUSCULAR HEMOGLOBIN 26.6 pg (25-34); MEAN CORPUSCULAR HGB CONC 31.3 g/dl (32-36); MEAN PLATELET VOLUME 9.1 fL (7.4-10.4); MONO % 5.8 %; NEUT % 67.2 %; PLATELET COUNT 188 K/uL (130-400); RED BLOOD COUNT 3.54 M/uL (4.2-5.4); WHITE BLOOD COUNT 4.34 K/uL (4.8-10.8)
[2017-02-03 07:18] LABS: BUN/CREATININE RATIO 28.6 (10-20); CALCIUM 8.6 mg/dl (8.5-10.1); CREATININE 0.83 mg/dl (0.60-1.20); POTASSIUM 4.6 mmol/L (3.5-5.1)
[2017-02-03 07:20] VITALS: BP 143/75; PULSE 58; TEMP 36.5; O2SAT 98
[2017-02-03] MEDS: CIPROFLOXACIN / D5W 400 MG in PREMIXED IN D5W 200 ML IV SCH ×2 (08:09→19:12)
[2017-02-03] MEDS: LOSARTAN POTASSIUM 50 MG TAB PO SCH (08:09)
[2017-02-03] MEDS: TAMSULOSIN HCL 0.4 MG CAP PO SCH (08:10)
[2017-02-03] MEDS: PROPRANOLOL HCL 10 MG TAB PO SCH ×2 (08:11→20:41)
[2017-02-03] MEDS: INSULIN ASPART 100 UNITS/ML 3 ML PEN SC SCH ×4 (08:21→20:39)
[2017-02-03] MEDS: PANTOprazole SOD 40 MG TAB PO SCH (08:22)
[2017-02-03] MEDS: INSULIN GLARGINE SOLOSTAR 100 UNITS/ML 3 ML PEN SC SCH ×2 (08:22→20:44)
[2017-02-03] MEDS ORDERED: NURSING VERBAL MED ORDER ONE ×2 (11:30→20:45)
[2017-02-03] MEDS ORDERED: NovoLOG PER UNIT CHARGE SC ONE (12:15)
--- NOTE | 2017-02-03 12:28 | Gastroenterology Progress Note ---
Progress Note Date of Service: Feb 03, 2017 Subjective Pt evaluation today including: conversation w/ patient, chart review, lab review, review of studies Review of Systems Abdomen: + diarrhea Medications Current Inpatient Medications Medications (Trade) Dose Ordered Sig/Maura Route Start Time Stop Time Status Last Admin Dose Admin Acetaminophen (Tylenol Tab) 650 mg Q4H PRN PO 01/29/17 17:00 02/28/17 16:59 Ondansetron HCl (Zofran Inj) 4 mg Q6H PRN IV 01/29/17 17:00 02/28/17 16:59 Aspirin (Aspirin Chew) 81 mg QPM PO 01/29/17 21:00 02/28/17 20:59 02/02/17 21:05 81 MG Levothyroxine Sodium (Synthroid Tab) 75 mcg DAILYBB PO 01/30/17 06:30 03/01/17 06:29 02/03/17 05:17 75 MCG Losartan Potassium (coZAAR TAB) 50 mg QAM PO 01/30/17 09:00 03/01/17 08:59 02/03/17 08:09 50 MG Prednisone (PredniSONE TAB) 20 mg BID PO 01/29/17 21:00 02/28/17 20:59 02/03/17 08:10 20 MG Propranolol HCl (Inderal Tab) 40 mg BID PO 01/29/17 21:00 02/28/17 20:59 02/03/17 08:11 40 MG Pantoprazole Sodium (Protonix Tab) 40 mg QAM PO 01/30/17 09:00 03/01/17 08:59 02/03/17 08:22 40 MG Ciprofloxacin/ Dextrose 400 mg/ Prmx 200 ml @ 100 mls/hr Q12H IV 01/29/17 20:00 02/08/17 19:59 02/03/17 08:09 100 MLS/HR Metronidazole 500 mg/Prmx 100 ml @ 100 mls/hr Q8H IV 01/29/17 20:00 02/08/17 19:59 02/03/17 05:16 100 MLS/HR Insulin Aspart (novoLOG ASPART) SLIDING SCALE G... ACHS SC 01/30/17 11:00 03/01/17 10:59 02/03/17 08:21 7 UNITS Glucose (Glucose 40% Gel) 15-30 GRAMS 15 GRAMS... UD PRN PO 01/30/17 09:15 03/01/17 09:14 Glucose (Glucose Chew Tab) 4-8 Tablets 4 Tabl... UD PRN PO 01/30/17 09:15 03/01/17 09:14 Dextrose (Dextrose 50% 50ML Syringe) 25-50ML OF 50% DW IV FOR... UD PRN IV 01/30/17 09:15 03/01/17 09:14 Glucagon (Glucagon Inj) 1 mg UD PRN SQ 01/30/17 09:15 03/01/17 09:14 Tamsulosin HCl (Flomax Cap) 0.4 mg QAM PO 02/03/17 09:00 03/05/17 08:59 02/03/17 08:10 0.4 MG Insulin Glargine (Lantus Solostar Pen) 20 units BID SC 02/02/17 21:00 03/02/17 20:59 02/03/17 08:22 20 UNITS Objective Vital Signs Date Time Temp Pulse Resp B/P (MAP) Pulse Ox O2 Delivery O2 Flow Rate FiO2 02/03/17 08:00 Room Air 02/03/17 07:20 36.5 58 16 143/75 (97) 98 02/03/17 00:00 Room Air 02/02/17 23:09 36.5 54 16 116/75 (89) 98 Room Air 02/02/17 16:00 Room Air 02/02/17 14:29 36.7 63 16 152/66 (94) 97 Physical Exam General Appearance: + obese Laboratory Results Last 24 Hours Test 02/02/17 16:14 02/02/17 20:07 02/03/17 06:25 02/03/17 07:28 Bedside Glucose 238 mg/dl 278 mg/dl 176 mg/dl White Blood Count 4.34 K/uL Red Blood Count 3.54 M/uL Hemoglobin 9.4 g/dL Hematocrit 30.0 % Mean Corpuscular Volume 84.7 fL Mean Corpuscular Hemoglobin 26.6 pg Mean Corpuscular Hemoglobin Concent 31.3 g/dl Platelet Count 188 K/uL Mean Platelet Volume 9.1 fL Neutrophils (%) (Auto) 67.2 % Lymphocytes (%) (Auto) 26.3 % Monocytes (%) (Auto) 5.8 % Eosinophils (%) (Auto) 0.0 % Basophils (%) (Auto) 0.0 % Neutrophils # (Auto) 2.92 K/uL Lymphocytes # (Auto) 1.14 K/uL Monocytes # (Auto) 0.25 K/uL Eosinophils # (Auto) 0.00 K/uL Basophils # (Auto) 0.00 K/uL RDW Standard Deviation 61.6 fL RDW Coefficient of Variation 19.8 % Immature Granulocyte % (Auto) 0.7 % Immature Granulocyte # (Auto) 0.03 K/uL Sodium Level 142 mmol/L Potassium Level 4.6 mmol/L Chloride Level 112 mmol/L Carbon Dioxide Level 24 mmol/L Anion Gap 6.0 mmol/L Blood Urea Nitrogen 24 mg/dl Creatinine 0.83 mg/dl Est Creatinine Clear Calc Drug Dose 49.9 ml/min Estimated GFR () 77.2 Estimated GFR (Non- 66.6 BUN/Creatinine Ratio 28.6 Random Glucose 192 mg/dl Calcium Level 8.6 mg/dl Test 02/03/17 11:14 Bedside Glucose 321 mg/dl Assessment and Plan The pt reports no abd pain but is having loose stools with some blood still. Received her first dose of Remicade on 02/01 and tolerated it well. Continues on prednisone 20 mg po bid. The plan is to transfer her to [facility] for rehab when she is stable. Will check stool for C diff.
[2017-02-03 15:33] VITALS: BP 126/73; PULSE 74; TEMP 36.6; O2SAT 97
--- NOTE | 2017-02-03 18:42 | Progress Note ---
Progress Note Date of Service Feb 03, 2017. 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 Her medical history is also significant for type 2 diabetes mellitus, arterial hypertension, osteoarthritis. She also had a suspected diverticulitis. She has a remote history of large villous adenoma of the cecum and underwent a right hemicolectomy and incidental appendectomy in the past.she is also exhibiting signs of dementia. Patient was admitted. She was started on IV ciprofloxacin and metronidazole. She was seen in GI consultation. Her condition has improved. She remains afebrile. Her WBC count remains normal her. She is having recurrent episodes of diarrhea and rectal bleeding. She does have a seton drain in place. She denied any headache or dizziness. No chest pain no shortness of breath. No abdominal pain. No nausea no vomiting. She did have urinary retention and had a Mckeon catheter in place. It was removed early this morning. Examination: Well developed in no distress Vital signs: Blood pressure 143/75, pulse 58, respirations 16, temperature 36.5 , oxygen saturation 98% on room air Skin is warm and dry. No rash HEENT no mucosal abnormalities Neck is supple without lymph node enlargement. No JVD. Heart regular heart sounds. Lungs are clear Abdomen is soft nontender without organomegaly or masses. Back no spinal tenderness. Extremities bilateral ankle edema. No clubbing no cyanosis Examination of the perineal area revealed a seton drain in place. There has been considerable improvement of the perianal inflammation. Assessment: Crohn's disease Severe exacerbation of her Crohn's disease Rectovaginal fistula Urinary tract infection Arterial hypertension Type 2 diabetes mellitus Memory deficit Plan: Continue her IV antibiotics The Mckeon catheter was removed. She will be monitored for any urinary retention Continue with therapies We are planning on transfer her to [facility] for rehabilitation early next week.
[2017-02-03] MEDS: ASPIRIN 81 MG CHEW PO SCH (20:41)
[2017-02-03] MEDS ORDERED: INSULIN ASPART 100 UNITS/ML 3 ML PEN SC ONE (20:45)
[2017-02-03 22:43] VITALS: BP 149/70; PULSE 58; TEMP 36.4; O2SAT 99
[2017-02-04] MEDS ORDERED: FUROSEMIDE 40 MG/4 ML VIAL ONE (03:00)
[2017-02-04] MEDS: METRONIDAZOLE / NSS 500 MG in PREMIXED NSS 100 ML IV SCH ×3 (05:14→21:36)
[2017-02-04] MEDS: LEVOTHYROXINE 75 MCG TAB PO SCH (05:15)
[2017-02-04 06:53] LABS: COMPLETE YES; EOS % 0.4 %; HEMATOCRIT 33.3 % (37-47); IG% 0.7 %; LYMPH % 46.8 %; LYMPH ABS # 2.57 K/uL (1.2-3.4); MEAN CELL VOLUME 84.1 fL (80-100); MEAN CORPUSCULAR HEMOGLOBIN 24.5 pg (25-34); MEAN CORPUSCULAR HGB CONC 29.1 g/dl (32-36); MEAN PLATELET VOLUME 9.2 fL (7.4-10.4); MONO % 8.7 %; NEUT % 43.4 %; PLATELET COUNT 201 K/uL (130-400); RED BLOOD COUNT 3.96 M/uL (4.2-5.4); WHITE BLOOD COUNT 5.49 K/uL (4.8-10.8)
[2017-02-04 07:19] LABS: BUN/CREATININE RATIO 28.4 (10-20); CALCIUM 8.8 mg/dl (8.5-10.1); CREATININE 0.76 mg/dl (0.60-1.20); POTASSIUM 4.2 mmol/L (3.5-5.1)
[2017-02-04 07:28] VITALS: BP 162/74; PULSE 56; TEMP 36.7; O2SAT 98
[2017-02-04] MEDS: CIPROFLOXACIN / D5W 400 MG in PREMIXED IN D5W 200 ML IV SCH ×2 (08:00→19:51)
[2017-02-04] MEDS: TAMSULOSIN HCL 0.4 MG CAP PO SCH (08:01)
[2017-02-04] MEDS: LOSARTAN POTASSIUM 50 MG TAB PO SCH (08:01)
[2017-02-04] MEDS: PANTOprazole SOD 40 MG TAB PO SCH (08:01)
[2017-02-04] MEDS: PROPRANOLOL HCL 10 MG TAB PO SCH ×2 (08:02→20:50)
[2017-02-04] MEDS: INSULIN ASPART 100 UNITS/ML 3 ML PEN SC SCH ×4 (08:22→20:53)
[2017-02-04] MEDS: INSULIN GLARGINE SOLOSTAR 100 UNITS/ML 3 ML PEN SC SCH ×2 (08:23→20:54)
[2017-02-04] MEDS ORDERED: FUROSEMIDE INJ 20 MG in SYRINGE 0 ML IV ONE (12:00)
[2017-02-04 15:32] VITALS: BP 110/64; PULSE 84; TEMP 36.6; O2SAT 97
[2017-02-04] MEDS ORDERED: NURSING VERBAL MED ORDER ONE (17:00)
[2017-02-04] MEDS ORDERED: INSULIN ASPART 100 UNITS/ML 3 ML PEN SC ONE (17:15)
--- NOTE | 2017-02-04 17:40 | Progress Note ---
Progress Note Date of Service Feb 04, 2017. Progress Note 81-year-old female with severe Crohn's disease admitted with severe exacerbation with severe perianal inflammation and also a rectovaginal fistula. Her medical problems also include type 2 diabetes mellitus arterial hypertension osteoarthritis hypothyroidism and history of villous adenoma of the cecum status post right hemicolectomy. On her admission CT scan of the abdomen and pelvis there was also suspicion of diverticulitis. Patient was admitted. On her laboratory tests were done. She was started on IV ciprofloxacin and metronidazole. She is on prednisone 20 mg twice a day. Patient was seen in GI consultation. The decision was to proceed with initiation of Remicade treatment. She did receive the first dose 2 days ago. It was well tolerated. She is improving. Still having a problem as far as her memory. She denied any headache. No dizziness no lightheadedness. No chest pain no shortness of breath. No abdominal pain no nausea no vomiting. She said having loose stools and also blood per rectum. She had a Mckeon catheter placed because of recurrent urinary tract infection and I was able to remove the catheter yesterday and she has been voiding. She is also on Flomax. Examination: She is well developed. No distress. Vital signs blood pressure 162/74, pulse 56, respiration 18, temperature 36.7, oxygen saturation 98% on room air Skin is warm and dry. No rash. HEENT no mucosal abnormality Neck is supple. Nontender. No lymph node or thyroid enlargement. No JVD. Heart regular heart tones without any murmur rub or gallop. Lungs are clear. Abdomen is soft nontender without organomegaly or masses. Extremities she does have 1-2+ edema of both lower legs and ankles. Laboratory tests: WBC count 5490, hemoglobin 9.7, hematocrit 33.3, platelet count [id number]. Sodium 143, potassium 4.2, chloride 111, CO2 28, BUN 22, creatinine 0.76, glucose 101, calcium 8.8. Assessment: Crohn's disease. Severe. Acute exacerbation of her chronic disease with severe perianal inflammation and pain no vaginal fistula Memory deficit and Type 2 diabetes mellitus Arterial hypertension Hypothyroidism Osteoarthritis Urinary retention Urinary tract infection Plan: Continuing with her metronidazole and IV ciprofloxacin Because of the increased leg edema she was given one dose of Lasix 20 mg IV Continuing all her other medications I was able to walk with her in the hallway for a short distance. She was using her walker as she did well. But it was only a short distance Her blood sugar has remained elevated. I have been increasing the dose of her Lantus insulin. We continue to do that. We also changed the sliding scale coverage with the NovoLog. Patient was treated for her fistula at [facility] where she was hospitalized. At this point patient does not wish to return to [facility] she would much rather have her treatment done here. She has seen Dr. Cummings in the past when she had her right hemicolectomy. I would speak with him tomorrow and ask him to see Mrs. Velasquez. We are still planning on discharging her to [facility] for her rehabilitation and recovery.
[2017-02-04] MEDS: ASPIRIN 81 MG CHEW PO SCH (20:49)
[2017-02-04 23:17] VITALS: BP 162/74; PULSE 104; TEMP 36.7; O2SAT 98
[2017-02-05] MEDS: LEVOTHYROXINE 75 MCG TAB PO SCH (06:03)
[2017-02-05] MEDS: METRONIDAZOLE / NSS 500 MG in PREMIXED NSS 100 ML IV SCH ×2 (06:03→14:04)
[2017-02-05 06:20] LABS: COMPLETE YES; HEMATOCRIT 35.1 % (37-47); LYMPH % 27.1 %; LYMPH ABS # 1.36 K/uL (1.2-3.4); MEAN CELL VOLUME 84.4 fL (80-100); MEAN CORPUSCULAR HEMOGLOBIN 25.7 pg (25-34); MEAN CORPUSCULAR HGB CONC 30.5 g/dl (32-36); MEAN PLATELET VOLUME 9.3 fL (7.4-10.4); NEUT % 67.9 %; PLATELET COUNT 183 K/uL (130-400); RED BLOOD COUNT 4.16 M/uL (4.2-5.4); WHITE BLOOD COUNT 5.02 K/uL (4.8-10.8)
[2017-02-05 06:47] LABS: BUN/CREATININE RATIO 27.1 (10-20); CREATININE 0.86 mg/dl (0.60-1.20); POTASSIUM 4.7 mmol/L (3.5-5.1)
[2017-02-05] MEDS: CIPROFLOXACIN / D5W 400 MG in PREMIXED IN D5W 200 ML IV SCH ×2 (07:40→19:59)
[2017-02-05 07:41] VITALS: BP_SYST 145; BP_SYST 153; BP_DIAS 75; BP_DIAS 82; PULSE 66; PULSE 80; TEMP 36.4; O2SAT 100
[2017-02-05] MEDS: LOSARTAN POTASSIUM 50 MG TAB PO SCH (07:42)
[2017-02-05] MEDS: PANTOprazole SOD 40 MG TAB PO SCH (07:42)
[2017-02-05] MEDS: PROPRANOLOL HCL 10 MG TAB PO SCH ×2 (07:43→20:31)
[2017-02-05] MEDS: TAMSULOSIN HCL 0.4 MG CAP PO SCH (07:43)
[2017-02-05] MEDS: INSULIN ASPART 100 UNITS/ML 3 ML PEN SC SCH ×4 (08:42→20:37)
[2017-02-05] MEDS: INSULIN GLARGINE SOLOSTAR 100 UNITS/ML 3 ML PEN SC SCH ×2 (08:42→20:37)
[2017-02-05] MEDS ORDERED: INSULIN ASPART 100 UNITS/ML 3 ML PEN SC ONE (12:00)
[2017-02-05 15:03] VITALS: BP 131/74; PULSE 77; TEMP 37.3; O2SAT 93
--- NOTE | 2017-02-05 17:03 | Gastroenterology Progress Note ---
Progress Note Date of Service: Feb 05, 2017 Subjective Pt evaluation today including: conversation w/ patient, chart review Medications Current Inpatient Medications Medications (Trade) Dose Ordered Sig/Maura Route Start Time Stop Time Status Last Admin Dose Admin Acetaminophen (Tylenol Tab) 650 mg Q4H PRN PO 01/29/17 17:00 02/28/17 16:59 Ondansetron HCl (Zofran Inj) 4 mg Q6H PRN IV 01/29/17 17:00 02/28/17 16:59 Aspirin (Aspirin Chew) 81 mg QPM PO 01/29/17 21:00 02/28/17 20:59 02/04/17 20:49 81 MG Levothyroxine Sodium (Synthroid Tab) 75 mcg DAILYBB PO 01/30/17 06:30 03/01/17 06:29 02/05/17 06:03 75 MCG Losartan Potassium (coZAAR TAB) 50 mg QAM PO 01/30/17 09:00 03/01/17 08:59 02/05/17 07:42 50 MG Prednisone (PredniSONE TAB) 20 mg BID PO 01/29/17 21:00 02/28/17 20:59 02/05/17 07:42 20 MG Propranolol HCl (Inderal Tab) 40 mg BID PO 01/29/17 21:00 02/28/17 20:59 02/05/17 07:43 40 MG Pantoprazole Sodium (Protonix Tab) 40 mg QAM PO 01/30/17 09:00 03/01/17 08:59 02/05/17 07:42 40 MG Ciprofloxacin/ Dextrose 400 mg/ Prmx 200 ml @ 100 mls/hr Q12H IV 01/29/17 20:00 02/08/17 19:59 02/05/17 07:40 100 MLS/HR Metronidazole 500 mg/Prmx 100 ml @ 100 mls/hr Q8H IV 01/29/17 20:00 02/08/17 19:59 02/05/17 14:04 100 MLS/HR Glucose (Glucose 40% Gel) 15-30 GRAMS 15 GRAMS... UD PRN PO 01/30/17 09:15 03/01/17 09:14 Glucose (Glucose Chew Tab) 4-8 Tablets 4 Tabl... UD PRN PO 01/30/17 09:15 03/01/17 09:14 Dextrose (Dextrose 50% 50ML Syringe) 25-50ML OF 50% DW IV FOR... UD PRN IV 01/30/17 09:15 03/01/17 09:14 Glucagon (Glucagon Inj) 1 mg UD PRN SQ 01/30/17 09:15 03/01/17 09:14 Tamsulosin HCl (Flomax Cap) 0.4 mg QAM PO 02/03/17 09:00 03/05/17 08:59 02/05/17 07:43 0.4 MG Insulin Glargine (Lantus Solostar Pen) 25 units BID SC 02/03/17 21:00 03/05/17 20:59 02/05/17 08:42 25 UNITS Insulin Aspart (novoLOG ASPART) SLIDING SCALE G... ACHS SC 02/04/17 21:00 03/06/17 20:59 02/05/17 12:10 23 UNITS Objective Vital Signs Date Time Temp Pulse Resp B/P (MAP) Pulse Ox O2 Delivery O2 Flow Rate FiO2 02/05/17 15:03 37.3 77 16 131/74 (93) 93 Room Air 02/05/17 08:00 Room Air 02/05/17 07:41 36.4 66 20 153/75 (101) 100 02/05/17 07:41 80 145/82 (103) 02/05/17 00:00 Room Air 02/04/17 23:17 36.7 104 20 162/74 (103) 98 Room Air 02/04/17 20:00 Room Air Physical Exam General Appearance: WD/WN Laboratory Results Last 24 Hours Test 02/04/17 20:47 02/05/17 06:03 02/05/17 07:04 02/05/17 11:08 Bedside Glucose 285 mg/dl 191 mg/dl 320 mg/dl White Blood Count 5.02 K/uL Red Blood Count 4.16 M/uL Hemoglobin 10.7 g/dL Hematocrit 35.1 % Mean Corpuscular Volume 84.4 fL Mean Corpuscular Hemoglobin 25.7 pg Mean Corpuscular Hemoglobin Concent 30.5 g/dl Platelet Count 183 K/uL Mean Platelet Volume 9.3 fL Neutrophils (%) (Auto) 67.9 % Lymphocytes (%) (Auto) 27.1 % Monocytes (%) (Auto) 4.0 % Eosinophils (%) (Auto) 0.0 % Basophils (%) (Auto) 0.0 % Neutrophils # (Auto) 3.41 K/uL Lymphocytes # (Auto) 1.36 K/uL Monocytes # (Auto) 0.20 K/uL Eosinophils # (Auto) 0.00 K/uL Basophils # (Auto) 0.00 K/uL RDW Standard Deviation 61.2 fL RDW Coefficient of Variation 19.9 % Immature Granulocyte % (Auto) 1.0 % Immature Granulocyte # (Auto) 0.05 K/uL Sodium Level 141 mmol/L Potassium Level 4.7 mmol/L Chloride Level 108 mmol/L Carbon Dioxide Level 29 mmol/L Anion Gap 4.0 mmol/L Blood Urea Nitrogen 23 mg/dl Creatinine 0.86 mg/dl Est Creatinine Clear Calc Drug Dose 48.2 ml/min Estimated GFR () 73.9 Estimated GFR (Non- 63.8 BUN/Creatinine Ratio 27.1 Random Glucose 172 mg/dl Calcium Level 9.0 mg/dl Test 02/05/17 14:00 02/05/17 16:32 Bedside Glucose 316 mg/dl 228 mg/dl Assessment and Plan The pt had 2 semi formed stools today with no visible blood. No abd pain. She is getting medically stable so she can be transferred to [facility] for rehab and continued care.
--- NOTE | 2017-02-05 17:55 | Progress Note ---
Progress Note Date of Service Feb 05, 2017. Progress Note 81-year-old female admitted with multiple medical problems including severe Crohn's disease with severe acute exacerbation with discovered rectovaginal fistula. She has been evaluated at [facility] and has a seton drain in place. Patient was having difficulties at home with her care. She was admitted because of the severity of her illness and the exacerbation and a complication. On her admission CT scan of the abdomen and pelvis there was also suspicion that she may have an acute diverticulitis. But prior to her hospitalization she did have a colonoscopy attempt at [facility] and she had severe inflammation and the procedure was not completed because of the risk for complication. She was also having rectal bleeding. Patient was admitted. She was started on IV ciprofloxacin and metronidazole. She already is on prednisone 20 mg twice a day. She was seen in GI consultation. The recommendation was to proceed with Remicade injections. She received 400 mg IV on 02/01/2017. The next dose is anticipated 2 weeks from that date and subsequently 6 weeks from the same date. Her condition has improved. She has not had any fever or any chills. No headache or dizziness or lightheadedness. No chest pain no shortness of breath. No abdominal pain. No nausea no vomiting. Her stool is now semi- formed. No blood noted. She also had a urinary tract infection and urinary retention and she did require a Mckeon catheter. She was started on Flomax and the Mckeon catheter was removed and she is able to void without much problem at this point. We will continue her Flomax at the present time and in the future once the inflammation in the perineal area subsides with good stop the Flomax. She continues to have bilateral lower leg and ankle edema. EXAMINATION: She is well-developed. No distress. Vital signs blood pressure 145/82, pulse 80, respiration 20, temperature 36.4, oxygen saturation 100% on room air. Skin is warm and dry. No rash. HEENT no evidence of any mucosal abnormalities Neck no evidence of any JVD. Heart regular heart sounds no murmur rub or gallop. Lungs are clear Abdomen is soft nontender. No evident organomegaly or masses. Extremities bilateral leg edema. No clubbing or cyanosis. Multiple ecchymotic areas. Laboratory tests: WBC count 5020, hemoglobin 10.7, hematocrit 35.1, platelet count 283,000. Sodium 141 potassium 4.7 chloride 108 CO2 29 BU and 23 creatinine 0.86 glucose 171 calcium 9.0. ASSESSMENT: Crohn's disease. Severe. Severe exacerbation Rectovaginal fistula Type 2 diabetes mellitus Arterial hypertension Urinary retention Urinary tract infection PLAN: She is continued on her IV antibiotics. She is doing well. Her appetite has improved. Her bowel movements have more consistency. As noted above she did receive 1 dose of Remicade 400 mg IV on 02/01/2017 and an Anticipated doses on 02/15/2017. As previously noted patient does not wish to return to [facility] for hospitalization and she would much rather have Dr. Cummings address the surgical issue. I spoke with Dr. Albaro Vang today. Requested a consultation. He saw the patient. He called me after he evaluated Mrs. Velasquez. The plan is to continue with her Remicade. Hopefully her Crohn's disease would be much under control and that inflammation should subside. He will see the patient in the future. Her blood sugars have been fluctuating and elevated. She is on prednisone 20 mg twice a day and that's a contributing factor. We will continue increasing her dose of insulin as needed gradually. If her condition remains stable I'm anticipating transfer her to [facility] tomorrow. We need to make sure that she will receive her Remicade injections on time. I'm not really sure at this point whether the Remicade can be administered at [facility] or we need to make arrangements for her to receive the medication either in the [facility] office( Dr Giles ) or in the medical treatment unit.
--- NOTE | 2017-02-05 18:37 | Surgery Consultation ---
Consultation Date of Consultation: Feb 05, 2017. Attending Physician: Alfredo Lancaster M.D. History of Present Illness Crohn's disease with perianal fistulas pt denies rectal or perianal pain lives alone with elderly 83 s/p right hemicolectomy for large villous adenoma 10 years ago(benign) Past Medical/Surgical History Medical Problems: (1) Ambulatory dysfunction Status: Acute (2) Anxiety Status: Acute (3) Dehydration Status: Acute (4) Dehydration Status: Acute (5) Facial numbness Status: Acute (6) Lightheaded Status: Acute (7) Sinusitis Status: Acute (8) UTI (urinary tract infection) Status: Acute (9) UTI (urinary tract infection) Status: Acute (10) Weakness Status: Acute (11) Weakness Status: Acute Family History Heart disease Hypertension Social History Smoking Status: Never Smoker Smokeless Tobacco Use: No Alcohol Use: none Drug Use: none Marital Status: Housing Status: lives with family Occupation Status: retired Allergies Coded Allergies: No Known Allergies (Verified , 01/29/17) Home Medications Scheduled Aspirin (Aspirin Chewable), 81 MG PO QPM Calcium/Vitamin D (Os-Karan 500 Plus D), 1 TAB PO QAM Furosemide (Lasix), 40 MG PO QAM Insulin Isophan/Regular (Novolin 70/30), 70 UNITS SC QAM Insulin Isophan/Regular (Novolin 70/30), 48 SC QPM Lansoprazole (Prevacid), 30 MG PO QAM Levothyroxine Sodium (Levothyroxine Sodium), 1 TAB PO QAM Losartan Potassium (Cozaar), 50 MG PO QAM Meloxicam (Mobic), 15 MG PO QAM Metronidazole (Flagyl), 500 MG PO TID Prednisone (Prednisone), 20 MG PO BID Propranolol Hcl (Propranolol Hcl), 1 TAB PO BID Current Inpatient Medications Current Inpatient Medications Medications (Trade) Dose Ordered Sig/Maura Route Start Time Stop Time Status Last Admin Dose Admin Acetaminophen (Tylenol Tab) 650 mg Q4H PRN PO 01/29/17 17:00 02/28/17 16:59 Ondansetron HCl (Zofran Inj) 4 mg Q6H PRN IV 01/29/17 17:00 02/28/17 16:59 Aspirin (Aspirin Chew) 81 mg QPM PO 01/29/17 21:00 02/28/17 20:59 02/04/17 20:49 81 MG Levothyroxine Sodium (Synthroid Tab) 75 mcg DAILYBB PO 01/30/17 06:30 03/01/17 06:29 02/05/17 06:03 75 MCG Losartan Potassium (coZAAR TAB) 50 mg QAM PO 01/30/17 09:00 03/01/17 08:59 02/05/17 07:42 50 MG Prednisone (PredniSONE TAB) 20 mg BID PO 01/29/17 21:00 02/28/17 20:59 02/05/17 07:42 20 MG Propranolol HCl (Inderal Tab) 40 mg BID PO 01/29/17 21:00 02/28/17 20:59 02/05/17 07:43 40 MG Pantoprazole Sodium (Protonix Tab) 40 mg QAM PO 01/30/17 09:00 03/01/17 08:59 02/05/17 07:42 40 MG Ciprofloxacin/ Dextrose 400 mg/ Prmx 200 ml @ 100 mls/hr Q12H IV 01/29/17 20:00 02/08/17 19:59 02/05/17 07:40 100 MLS/HR Metronidazole 500 mg/Prmx 100 ml @ 100 mls/hr Q8H IV 01/29/17 20:00 02/08/17 19:59 02/05/17 14:04 100 MLS/HR Glucose (Glucose 40% Gel) 15-30 GRAMS 15 GRAMS... UD PRN PO 01/30/17 09:15 03/01/17 09:14 Glucose (Glucose Chew Tab) 4-8 Tablets 4 Tabl... UD PRN PO 01/30/17 09:15 03/01/17 09:14 Dextrose (Dextrose 50% 50ML Syringe) 25-50ML OF 50% DW IV FOR... UD PRN IV 01/30/17 09:15 03/01/17 09:14 Glucagon (Glucagon Inj) 1 mg UD PRN SQ 01/30/17 09:15 03/01/17 09:14 Tamsulosin HCl (Flomax Cap) 0.4 mg QAM PO 02/03/17 09:00 03/05/17 08:59 02/05/17 07:43 0.4 MG Insulin Glargine (Lantus Solostar Pen) 25 units BID CA 02/03/17 21:00 03/05/17 20:59 02/05/17 08:42 25 UNITS Insulin Aspart (novoLOG ASPART) SLIDING SCALE G... ACHS CA 02/04/17 21:00 03/06/17 20:59 02/05/17 17:22 13 UNITS Review of Systems Constitutional: + weakness, + fatigue Eyes: No worsening of vision, No eye pain, No redness, No discharge, No diplopia, No problem reported ENT: No hearing loss, No unusual epistaxis, No nasal symptoms, No sore throat, No tinnitus, No dental problems, No trouble swallowing, No problem reported Respiratory: No cough, No sputum, No wheezing, No shortness of breath, No dyspnea on exertion, No dyspnea at rest, No hemoptysis, No problem reported Cardiovascular: No chest pain, No orthopnea, No PND, No edema, No claudication , No palpitations, No problem reported Abdomen: + nausea, + diarrhea, + GI bleeding Musculoskeletal: + joint pain Genitourinary - Female: + dysuria Neurologic: + memory loss Psychiatric: No depression symptoms, No anhedonism, No anxiety, No insomnia, No substance abuse, No problem reported Endocrine: No fatigue, No excessive thirst, No excessive urination, No problem reported Integumentary: No rash, No itch, No new/changing skin lesions, No color change , No bleeding, No problem reported Physical Exam Date Time Temp Pulse Resp B/P (MAP) Pulse Ox O2 Delivery O2 Flow Rate FiO2 02/05/17 15:03 37.3 77 16 131/74 (93) 93 Room Air 02/05/17 08:00 Room Air 02/05/17 07:41 36.4 66 20 153/75 (101) 100 02/05/17 07:41 80 145/82 (103) 02/05/17 00:00 Room Air 02/04/17 23:17 36.7 104 20 162/74 (103) 98 Room Air 02/04/17 20:00 Room Air General Appearance: + pertinent finding (alert coherent in no distress ) Head: normocephalic Eyes: sclerae normal ENT: hearing grossly normal Neck: supple, no adenopathy, no carotid bruits Respiratory/Chest: lungs clear Cardiovascular: regular rate, rhythm Abdomen/GI: non tender, soft Extremities/Musculoskelatal: + pertinent finding (evidence od browny discoloration likely venous insufficiency) Skin: normal color Laboratory Results Last 24 Hours Test 02/04/17 20:47 02/05/17 06:03 02/05/17 07:04 02/05/17 11:08 Bedside Glucose 285 mg/dl 191 mg/dl 320 mg/dl White Blood Count 5.02 K/uL Red Blood Count 4.16 M/uL Hemoglobin 10.7 g/dL Hematocrit 35.1 % Mean Corpuscular Volume 84.4 fL Mean Corpuscular Hemoglobin 25.7 pg Mean Corpuscular Hemoglobin Concent 30.5 g/dl Platelet Count 183 K/uL Mean Platelet Volume 9.3 fL Neutrophils (%) (Auto) 67.9 % Lymphocytes (%) (Auto) 27.1 % Monocytes (%) (Auto) 4.0 % Eosinophils (%) (Auto) 0.0 % Basophils (%) (Auto) 0.0 % Neutrophils # (Auto) 3.41 K/uL Lymphocytes # (Auto) 1.36 K/uL Monocytes # (Auto) 0.20 K/uL Eosinophils # (Auto) 0.00 K/uL Basophils # (Auto) 0.00 K/uL RDW Standard Deviation 61.2 fL RDW Coefficient of Variation 19.9 % Immature Granulocyte % (Auto) 1.0 % Immature Granulocyte # (Auto) 0.05 K/uL Sodium Level 141 mmol/L Potassium Level 4.7 mmol/L Chloride Level 108 mmol/L Carbon Dioxide Level 29 mmol/L Anion Gap 4.0 mmol/L Blood Urea Nitrogen 23 mg/dl Creatinine 0.86 mg/dl Est Creatinine Clear Calc Drug Dose 48.2 ml/min Estimated GFR () 73.9 Estimated GFR (Non- 63.8 BUN/Creatinine Ratio 27.1 Random Glucose 172 mg/dl Calcium Level 9.0 mg/dl Test 02/05/17 14:00 02/05/17 16:32 Bedside Glucose 316 mg/dl 228 mg/dl Assessment & Plan discussed situation in detail with Dr Bustos problem complex perianal disease with multiple fistulae tracs one rectal vaginal with seton in place, large 3x2 cm granulating open wound 6-9 o,clock position clean no cellulitis anal stricture by colonoscopy with grossly Crohn's disease and diverticular problem recto sigmoid according to Dr Bustos perianal area much improved with remicade at this time continue non operative management if condition worsens than options include loop colostomy vs ileostomy( elderly pt do not do well with ileostomy because of fluid losses) and colostomy may be difficult in site of diverticular problems and likely Crohn"s. ok to d/c pt and follow as OP in offfice 1 week
[2017-02-05 20:29] VITALS: BP 170/80; PULSE 78
[2017-02-05] MEDS: ASPIRIN 81 MG CHEW PO SCH (20:30)
[2017-02-06 00:01] VITALS: BP 170/80; PULSE 78; TEMP 36.5; O2SAT 96
[2017-02-06] MEDS: METRONIDAZOLE / NSS 500 MG in PREMIXED NSS 100 ML IV SCH ×2 (00:39→06:12)
[2017-02-06] MEDS: LEVOTHYROXINE 75 MCG TAB PO SCH (06:13)
[2017-02-06 07:19] VITALS: BP 148/71; PULSE 79; TEMP 36.4; O2SAT 96
[2017-02-06 07:47] VITALS: BP 122/67; PULSE 73
[2017-02-06] MEDS: CIPROFLOXACIN / D5W 400 MG in PREMIXED IN D5W 200 ML IV SCH (07:50)
[2017-02-06] MEDS: LOSARTAN POTASSIUM 50 MG TAB PO SCH (07:52)
[2017-02-06] MEDS: PROPRANOLOL HCL 10 MG TAB PO SCH (07:52)
[2017-02-06] MEDS: PANTOprazole SOD 40 MG TAB PO SCH (07:52)
[2017-02-06] MEDS: TAMSULOSIN HCL 0.4 MG CAP PO SCH (07:52)
[2017-02-06] MEDS ORDERED: LANS30CA12 PO (08:00)
[2017-02-06] MEDS ORDERED: PRED20TA PO (08:00)
[2017-02-06] MEDS ORDERED: LOSA1TAB PO (08:00)
[2017-02-06] MEDS ORDERED: METR-163 PO (08:00)
[2017-02-06] MEDS ORDERED: CIPR1TAB10 PO (08:00)
[2017-02-06] MEDS ORDERED: LEVO75TA5 PO (08:00)
[2017-02-06] MEDS ORDERED: INSU70IN2 SC ×2 (08:00)
[2017-02-06] MEDS ORDERED: ACET-1047 PO (08:00)
[2017-02-06] MEDS ORDERED: FLM4 PO (08:00)
[2017-02-06] MEDS ORDERED: PROP40TA5 PO (08:00)
[2017-02-06] MEDS: INSULIN GLARGINE SOLOSTAR 100 UNITS/ML 3 ML PEN SC SCH (08:00)
[2017-02-06] MEDS ORDERED: MELO15TA10 PO (08:00)
[2017-02-06] MEDS ORDERED: CALC500C70 PO (08:00)
[2017-02-06] MEDS ORDERED: FRS/40 PO (08:00)
[2017-02-06] MEDS: INSULIN ASPART 100 UNITS/ML 3 ML PEN SC SCH ×2 (08:01→12:29)
[2017-02-06] MEDS ORDERED: RMCI IV (08:05)
--- NOTE | 2017-02-06 08:20 | Discharge Instructions ---
Discharge Instructions Date of Service Feb 06, 2017. Admission Reason for Admission: CROHN'S DISEASE, SEVERE ACUTE EXACERBATION OF CROHN'S DISEASE RECTOVAGINAL FISTULA S/P PLACEMENT OF SETON DRAIN URINARY TRACT INFECTION URINARY RETENTION DIVERTICULITIS TYPE 2 DIABETES MELLITUS ARTERIAL HYPERTENSION HYPOTHYROIDISM OSTEOARTHRITIS MEMORY DEFICIT Discharge Discharge Diagnosis / Problem: CROHN'S DISEASE. RECTOVAGINAL FISTULA Discharge Goals Goal(s): Decrease discomfort, Improve function, Increase independence, Improve disease control, Improve nutritional status Activity Recommendations Activity Level: Assistance Required Therapies: Physical Therapy, Occupational Therapy . Additional Information Patient informed of condition: Yes Advance Directives: No DNR: No Level of Care: Skilled Communicable Disease: No Prognosis: Improving Mckeon Catheter: No Instructions / Follow-Up Instructions / Follow-Up APPOINTMENT WITH DR EAGLE IN ONE WEEK APPOINTMENT WITH DR MEDRANO IN 0NE WEEK Current Hospital Diet Patient's current hospital diet: Diabetes Type 2 Diet Discharge Diet Recommended Diet: Diabetes Type 2 Diet Pending Studies Studies pending at discharge: no Physician Orders On Transfer IV Therapy: REMICADE 400 MG IV ON 02/15/2017 REMICADE 400 MG IV ON 03/14/2017 Laboratory Results Hemoglobin A1c Test 12/11/16 07:05 Range/Units Estimated Average Glucose 166 mg/dl Hemoglobin A1c 7.4 H 4.5-5.6 % Lipid Panel Test 12/11/16 07:05 Range/Units Triglycerides Level 86 0-150 mg/dl Cholesterol Level 104 0-200 mg/dl HDL Cholesterol 35 mg/dl LDL Cholesterol Direct 70 mg/dl Cholesterol/HDL Ratio 3.0 LDL Cholesterol, Calculated mg/dl Medical Emergencies . Who to Call and When: Medical Emergencies: If at any time you feel your situation is an emergency, please call 911 immediately. . Non-Emergent Contact Non-Emergency issues call your: Primary Care Provider . . "Provider Documentation" section prepared by Alfredo Bustos. . Core Measure Problem Core Measures: None
[2017-02-06 09:53] VITALS: BP 122/67; PULSE 73; TEMP 36.4; O2SAT 96
--- NOTE | 2017-02-06 21:24 | Progress Note ---
Progress Note Date of Service Feb 06, 2017. Progress Note 81-year-old female with severe Crohn's disease admitted with acute exacerbation. She had recurrent diarrhea and rectal bleeding. She also has a rectovaginal fistula.. She has been evaluated at [facility] and has a seton and drain in place.on admission on her CT scan of the abdomen and pelvis there was also suspicion of acute diverticulitis. Her medical history is quite extensive with type 2 diabetes mellitus arterial hypertension hypothyroidism hyperlipidemia and osteoarthritis. She also has patient onset of cognitive impairment mostly with her memory. Her condition has markedly improved. She's no longer having any rectal bleeding. She was started on Remicade. She did receive the first dose on 2016. Her appetite has improved. She denied any headache or dizziness or lightheadedness. No chest pain no shortness of breath. No abdominal pain no nausea or vomiting. No further diarrhea. No further bleeding. She had the urinary retention and did require Mckeon catheter for a short time but she was started on Flomax and a Mckeon catheter was removed and she has been able to void without any problem. EXAMINATION: GENERAL : Well developed. Well nourished. No acute distress. VITAL SIGNS ; Blood Pressure :148/71 Pulse : 79 respiration 18 Temperature : 36.4. Oxygen saturation 96% on room air SKIN : Warm and dry. No rash. HEENT :She wears glasses. No mucosal abnormalities NECK : Supple. No adenopathy. No thyromegaly. No JVD. Normal carotid pulses. No carotid bruit. HEART: Regular heart sounds without any murmur rub or gallop. LUNGS: Clear. Normal breath sounds. ABDOMEN :soft nontender. No organomegaly. Good bowel sounds. EXTREMITIES: Bilateral leg edema. Decreased. No clubbing no cyanosis. ASSESSMENT: Severe Crohn's disease Severe exacerbation of her Crohn's disease Rectovaginal fistula Type 2 diabetes mellitus Arterial hypertension Hypothyroidism Osteoarthritis PLAN: Her condition has markedly improved She was already started on Remicade Arrangements were made for her to be transferred to [facility] She will followup with Dr. Cummings and Dr. Giles Her next Remicade dose will be on 02/15/2017 then on 03/15/2017. Arrangements were made for the medication to be administered in the medical treatment unit.
--- NOTE | 2017-02-18 13:37 | Discharge Summary ---
Discharge Summary Date of Service Feb 18, 2017. Discharge Summary ADMISSION DATE: 01/29/2017 DISCHARGE DATE: 02/06/2017 DISCHARGE DIAGNOSES: * severe Crohn's disease * Acute exacerbation of Crohn's disease * Rectovaginal fistula * Status post placement of seton drain * Urinary tract infection * Urinary retention * Arterial hypertension * Diverticulitis * Type 2 diabetes mellitus * Hypothyroidism * Osteoarthritis * Memory deficit DISCHARGE MEDICATIONS: * acetaminophen 650 mg every 4 hours as needed for pain or fever * Ciprofloxacin 500 mg twice a day for 5 days * Tamsulosin 0.4 mg daily for 15 days * Remicade 400 mg IV in 2 weeks after her first dose which she received in the hospital and 4 weeks after the second dose then she will be on maintenance dose every 6 weeks * Novolin insulin units in the morning and 48 units in the evening * Calcium with vitamin D 500 mg one tablet in the morning * Furosemide 40 mg daily in the morning * Prevacid 30 mg daily * Levothyroxine 75 mcg daily * Losartan 50 mg daily * Meloxicam 15 mg daily * Metronidazole 500 mg 3 times a day 8 * Prednisone 20 mg twice a day * Propranolol 40 mg twice a day CONSULTATION: Dr. Gary Giles in gastroenterology 81-year-old female admitted through the emergency room with multiple problems including severe Crohn's disease with acute exacerbation and complication with severe perianal disease and rectovaginal fistula that. She also had evidence of urinary tract infection and diverticulitis. Patient was seen in the office with severe inflammation at the perianal area. She does have previously diagnosed Crohn's disease. Prior to that she was not taking any medications. She always felt that she did not really need to take any medications on a regular basis. She had severe disease with severe perianal inflammation and multiple deep ulcers in the perianal area. She was restarted on prednisone and mesalamine. She was referred back for GI evaluation. She was referred to [facility]. She was found to have a rectovaginal fistula. She had a seton drain placed. Her condition had been deteriorating. She was having severe pain. She was having problem with all her activities. She has been feeling extremely weak. Difficulty ambulating. She is having recurrent diarrhea and rectal bleeding. She was evaluated in the emergency room. All her tests and imaging studies were done. She was also found to have urinary retention. A Mckeon catheter was placed. I saw Mrs. Velasquez in the emergency room and she was admitted for further treatment. PAST MEDICAL HISTORY, SOCIAL HISTORY, FAMILY HISTORY: As noted on her admission history and physical. ALLERGIES: None CURRENT MEDICATIONS: As noted on her home medication list. HOSPITAL COURSE: Patient was admitted to a medical bed. Resuscitation level I. All her laboratory tests were ordered. She was started on IV ciprofloxacin and metronidazole. Her blood sugars were monitored. Insulin coverage. DVT prophylaxis. Physical and occupational therapies were ordered. GI consultation was ordered. She was continued on her medications. Continued on IV fluid. IV antibiotics. Oral prednisone. Prior to her admission the plan was to start her on Remicade. Patient's insurance approval was in process. She continued to have recurrent episodes of bleeding per rectum. She was having loose stool. She did not have any fever. Any chills. All other laboratory tests were monitored. She did not require a transfusion. An attempt was made to remove her Mckeon catheter. She was unable to void. Subsequently she was started on oral Flomax. The second attempt to remove the Mckeon catheter was successful. She did receive her first dose of Remicade during her hospitalization. The plan was to repeat the same dose in 2 weeks after the first dose then the third dose in 6 weeks from the first dose. Subsequently she was to be on 400 mg every 6 weeks. Her condition improved. Her appetite started to improve. Patient was not able to go back home in this condition. Arrangements were made for her to go to [facility]. The arrangements were completed. Patient was transferred. Arrangements were made for her to receive the Remicade infusion in the medical treatment unit at the hospital.
== END 2017-02-06 13:10 | DRG 386 ==
LOC: C.EDB 10:49 → ENRESERV 17:30 → C.MS2W 19:27
PROVIDERS: ADMIT Internal Medicine; ATTEND Internal Medicine
DX: K50.813 Crohn's disease of both small and large intestine with fistula (principal); K57.32 Diverticulitis of large intestine without perforation or abscess without bleeding; N39.0 Urinary tract infection, site not specified; N82.3 Fistula of vagina to large intestine; Z98.890 Other specified postprocedural states; R31.9 Hematuria, unspecified; Z79.52 Long term (current) use of systemic steroids; Z79.4 Long term (current) use of insulin; Z96.652 Presence of left artificial knee joint; R33.9 Retention of urine, unspecified; I10 Essential (primary) hypertension; E03.9 Hypothyroidism, unspecified; E11.9 Type 2 diabetes mellitus without complications; M19.90 Unspecified osteoarthritis, unspecified site